=== PATIENT | female | born 1945 | race Caucasian/White ===

== ENCOUNTER 2021-12-08 13:49 | Emergency (ER) | payer MEDICARE, SELFPAY ==
--- NOTE | ~2021-12-08 | XR_ITS ---
EXAMINATION: XR chest 2V DATE: 12/08/2021 16:26 INDICATION: Cough. TECHNIQUE: Frontal and lateral views of the chest were obtained. COMPARISON: Chest 2 views 10/30/2018, CT abdomen and pelvis 07/14/2018 FINDINGS: There is scarring at the lung apices. No pleural effusion or pneumothorax. The heart size i s normal. IMPRESSION: 1. Stable scarring at the lung apices. Reviewed, dictated and finalized at location A.
[2021-12-08 13:58] VITALS: BP 120/77; PULSE 91; RESP 16; TEMP 37; O2SAT 99
--- NOTE | 2021-12-08 16:45 | ED.URI ---
HPI - URI/Sore Throat General Chief Complaint: Upper Respiratory Infection Stated Complaint: Sore Throat/Cough Time Seen by Provider: 12/08/21 16:45 Source: patient and RN notes reviewed Mode of arrival: ambulatory Limitations: no limitations History of Present Illness HPI Narrative: 76-year-old female presented for complaint of sore throat, sinus pressure, cough and sneezing worsening over the past 3 days. Endorses shortness of breath with exertion. She denies nausea, vomiting, fever or chills. Taking Zyrtec, Mucinex, and ibuprofen for symptoms. She has boosted for COVID and has had flu vaccine. Denies sick contacts. MD elicited complaint: cough Related Data Home Medications Medication Instructions Recorded Confirmed Domperidone 10 mg PO TID 12/08/21 aspirin [Baby Aspirin] 81 mg PO DAILY 12/08/21 12/08/21 carbidopa-levodopa 1 tablet PO DAILY 12/08/21 12/08/21 lovastatin 40 mg PO DAILY 12/08/21 12/08/21 Allergies Allergy/AdvReac Type Severity Reaction Status Date / Time buspirone Allergy Intermediate VOMITING Verified 12/08/21 16:13 codeine Allergy Intermediate VOMITING Verified 12/08/21 16:13 metoclopramide Allergy Intermediate VOMITING Verified 12/08/21 16:13 morphine Allergy Intermediate VOMITING Verified 12/08/21 16:13 pentazocine Allergy Intermediate VOMITING Verified 12/08/21 16:13 Review of Systems Review of Systems: CONSTITUTIONAL: Denies malaise, chills, sweats, fever EYES: Denies visual changes, redness, or discharge ENT: Reports rhinorrhea, sneezing, congestion, sinus pain, sore throat CARDIOVASCULAR: Denies chest pain, palpitations, edema RESPIRATORY: Reports cough, post nasal drainage, LOPEZ GASTROINTESTINAL: Denies abdominal pain, nausea, vomiting, diarrhea SKIN: Denies rash or itching MUSCULOSKELETAL: denies myalgia NEUROLOGIC: Denies headache Exam Narrative: GENERAL: Ill-appearing, nontoxic HEAD: Normocephalic EYES: conjunctivae clear ENT: Sinus congestion, Mucous membranes moist. TM pearly cisneros with dull light reflex bilaterally; no tragal tenderness. Oropharynx erythematous without lesions or exudate, no drooling, no hoarseness, no trismus, uvula midline. NECK: Supple. No lymphadenopathy CHEST: Clear to auscultation, breath sounds equal. No wheezing, rhonchi, rales, or stridor. No respiratory distress, speaks in full sentences. HEART: Regular rate and rhythm. No murmur heard. SKIN: Warm, dry, no rash. NEURO: Alert and oriented x3. PSYCH: Normal mood and affect Course Course Emergency Course: Patient is aware of diagnosis, understands and agrees to treatment plan. Anticipatory guidance given. Patient agrees to follow-up as directed and is aware of reasons to seek care at the emergency department. Portions of this record may have been created with voice recognition software Level of Care: Express Care Visit Vital Signs Vital signs: Vital Signs Temperature 98.6 F 12/08/21 13:58 Pulse Rate 91 12/08/21 13:58 Respiratory Rate 16 12/08/21 13:58 Blood Pressure 120/77 12/08/21 13:58 Pulse Oximetry 99 12/08/21 13:58 Temperature 98.6 F 12/08/21 13:58 Pulse Rate 91 12/08/21 13:58 Respiratory Rate 16 12/08/21 13:58 Blood Pressure 120/77 12/08/21 13:58 Pulse Oximetry 99 12/08/21 13:58 reviewed MDM - URI/Sore Throat MDM Narrative Medical decision making narrative: CXR reviewed with pt. Sx c/w URI. She will treat symptomatically and f/u with pcp PRN. Differential Diagnosis Differential diagnosis: Likely upper respiratory infection, sinusitis and viral infection Imaging Data Radiologist's impression: Ordering Physician: Barbara Fairchild APRN Date of Service: 12/08/21 Procedure(s): XR chest 2V Accession Number(s): [id number] cc: Barbara Fairchild APRN; Brett, Loree Walker DO~ EXAMINATION: XR chest 2V DATE: 12/08/2021 16:26 INDICATION: Cough. TECHNIQUE: Frontal and lateral views of the chest were obtained. COMPARISON: Chest 2 views 10/30/2018,
== END 2021-12-08 17:00 | disposition home or self-care (01) ==
PROVIDERS: Emergency Provider Nurse Practitioner Family; PCP Family Medicine
DX: J06.9 Acute upper respiratory infection, unspecified (principal); Z79.82 Long term (current) use of aspirin
CPT/HCPCS: 71046; 99203; G0463

== ENCOUNTER 2022-04-20 18:51 | Emergency (ER) | payer MEDICARE, SELFPAY ==
[2022-04-20 18:59] VITALS: BP 126/71; PULSE 87; RESP 18; TEMP 36.7; O2SAT 98
--- NOTE | 2022-04-20 19:08 | ED.WOUNDLAC ---
HPI - Wound/Laceration General Chief Complaint: Wound/Laceration Stated Complaint: Left hand cat bite Time Seen by Provider: 04/20/22 19:08 Source: patient Mode of arrival: ambulatory Limitations: no limitations History of Present Illness HPI narrative: 76 yo F presents with infection to L hand. Pt's cat bit her 3 days ago. Cat up to date on vaccines. Pt unsure of last tetanus. Has been applying bacitracin and soaking in salt water soaks. afebrile. Normal ROM to L hand. All systems reviewed and negative except as noted above. Related Data Home Medications Medication Instructions Recorded Confirmed Domperidone 10 mg PO TID 12/08/21 04/20/22 aspirin 81 mg chewable tablet 81 mg PO DAILY 12/08/21 04/20/22 carbidopa 25 mg-levodopa 100 mg 1 tablet PO TID 12/08/21 04/20/22 tablet lovastatin 40 mg tablet 40 mg PO DAILY 12/08/21 04/20/22 Allergies Allergy/AdvReac Type Severity Reaction Status Date / Time buspirone Allergy Intermediate VOMITING Verified 04/20/22 19:07 codeine Allergy Intermediate VOMITING Verified 04/20/22 19:07 metoclopramide Allergy Intermediate VOMITING Verified 04/20/22 19:07 morphine Allergy Intermediate VOMITING Verified 04/20/22 19:07 pentazocine Allergy Intermediate VOMITING Verified 04/20/22 19:07 Sulfa (Sulfonamide Allergy Unknown Verified 04/20/22 19:07 Antibiotics) Review of Systems Review of Systems: CONSTITUTIONAL: Denies fever, chills, or sweats. EYES: Denies visual changes, redness, or discharge. ENT: Denies rhinorrhea, congestion, sore throat, or otalgia. CARDIOVASCULAR: Denies chest pain, palpitations, or edema. RESPIRATORY: Denies cough or dyspnea. GASTROINTESTINAL: Denies abdominal pain, nausea, vomiting, or diarrhea. GENITOURINARY: Denies dysuria or hematuria. SKIN: Denies rash or itching. Reports erythema, pain to L hand hand from cat bite. MUSCULOSKELETAL: Denies back pain, joint pain, or myalgia. NEUROLOGIC: Denies headache, numbness, or weakness. PSYCHIATRIC: Denies anxiety or depression. All other systems reviewed are negative, except as documented in HPI. [facility] Comments At time of signature, agree with nursing past medical, surgical, social and family history. There is no relevant family history pertinent to the presenting complaint. Exam Narrative: GENERAL: This is a well-nourished, well-developed patient, in no apparent distress. HEAD: normocephalic, atraumatic. EYES: PERRL. Sclera clear/white. Vision is grossly intact. EARS: External ears normal NOSE: External nose normal NECK: Neck supple, non-tender without lymphadenopathy, masses or thyromegaly. CARDIOVASCULAR: Regular rate and rhythm without murmurs, gallops, or rubs. RESPIRATORY: Clear to auscultation. Breath sounds equal bilaterally. No wheezes, rales, or rhonchi. SKIN: warm, Dry, intact with no suspicious lesions or rash, good texture and turgor. erythema, warmth, mild swelling, tenderness to lateral aspect L hand, 4th and 5th metacarpal. no involvement of fingers. NEURO: awake, alert, and oriented to person, place and time. There were no obvious focal neurologic abnormalities. EXTREMITIES: No joint tenderness, effusion, or edema noted. Course Course Level of Care: Express Care Visit Vital Signs Vital signs: Vital Signs Temperature 36.7 C 04/20/22 18:59 Pulse Rate 87 04/20/22 18:59 Respiratory Rate 18 04/20/22 18:59 Blood Pressure 126/71 04/20/22 18:59 Pulse Oximetry 98 04/20/22 18:59 Oxygen Delivery Room Air 04/20/22 18:59 Temperature 36.7 C 04/20/22 18:59 Pulse Rate 87 04/20/22 18:59 Respiratory Rate 18 04/20/22 18:59 Blood Pressure 126/71 04/20/22 18:59 Pulse Oximetry 98 04/20/22 18:59 Oxygen Delivery Room Air 04/20/22 18:59 Reviewed MDM - Wound/Laceration MDM Narrative Medical decision making narrative: Patient is aware of diagnosis, understands and agrees to treatment plan. Anticipatory guidance given. Patient agrees to follow-up as direct
[2022-04-20] MEDS: TETANUS/DIPHTHERIA TOXOIDS ADSORB 0.5 ML VIAL (*BKC) IM (19:23)
== END 2022-04-20 19:34 | disposition home or self-care (01) ==
PROVIDERS: Emergency Provider Nurse Practitioner Family; PCP Family Medicine
DX: S61.452A Open bite of left hand, initial encounter (principal); L08.9 Local infection of the skin and subcutaneous tissue, unspecified; W55.01XA Bitten by cat, initial encounter; Z23 Encounter for immunization
CPT/HCPCS: 90471; 90714; 99213; G0463

== ENCOUNTER 2023-07-14 13:02 | Emergency (ER) | payer MEDICARE, SELFPAY ==
[2023-07-14 13:10] VITALS: BP 129/82; PULSE 66; RESP 20; TEMP 36.6; O2SAT 98
--- NOTE | 2023-07-14 13:14 | ED.BACK ---
HPI - Back Pain/Injury General Chief Complaint: Back Pain/Injury Stated Complaint: Back pain Time Seen by Provider: 07/14/23 13:14 Source: patient, RN notes reviewed and old records reviewed Mode of arrival: ambulatory Limitations: no limitations History of Present Illness HPI Narrative: 78 year old female presents to [facility] care with complaints of lower back pain with some radiation to buttocks intermittently. patient reports that at times it is on her left side and at times it is on the right. Patient reports that she has been attending Yoga through [employer] in [place] and she states she thinks she may of pulled muscle in her back. Patient reports that she has tried ice and heat, local Biofreeze, Aspercreme and has taken Tylenol for pain also with no improvement. Patient denies any radiation of pain down her legs or any feelings of tingling or numbness, denies any bowel or bladder dysfunction MD elicited complaint: back pain Pertinent past history: other (parkinsons) Onset (ago): week(s) (3) Severity: moderate Pain scale (0-10): 7 Exacerbating factors: movement (certain) Related Data Home Medications Medication Instructions Recorded Confirmed Domperidone 10 mg PO TID 12/08/21 07/14/23 aspirin 81 mg chewable tablet 81 mg PO DAILY 12/08/21 07/14/23 carbidopa 25 mg-levodopa 100 mg 1.5 tablet PO DIRECTED 12/08/21 07/14/23 tablet lovastatin 40 mg tablet 40 mg PO DAILY 12/08/21 07/14/23 carbidopa 25 mg-levodopa 100 mg 1 tablet PO HS 07/14/23 07/14/23 tablet carbidopa 25 mg-levodopa 100 mg 1.5 tablet PO DAILY 07/14/23 07/14/23 tablet Allergies Allergy/AdvReac Type Severity Reaction Status Date / Time buspirone Allergy Intermediate VOMITING Verified 07/14/23 13:20 codeine Allergy Intermediate VOMITING Verified 07/14/23 13:20 metoclopramide Allergy Intermediate VOMITING Verified 07/14/23 13:20 morphine Allergy Intermediate VOMITING Verified 07/14/23 13:20 pentazocine Allergy Intermediate VOMITING Verified 07/14/23 13:20 Sulfa (Sulfonamide Allergy Unknown Verified 07/14/23 13:20 Antibiotics) Review of Systems Review of Systems: CONSTITUTIONAL: Denies fever, chills, or sweats. CARDIOVASCULAR: Denies chest pain, palpitations, or edema. RESPIRATORY: Denies cough or dyspnea. GASTROINTESTINAL: Denies abdominal pain, nausea, vomiting, or diarrhea. GENITOURINARY: Denies dysuria or hematuria. SKIN: Denies rash or itching. MUSCULOSKELETAL: Reports lower back pain with pain,going into buttocks with no radiation down legs, or myalgia. NEUROLOGIC: Denies headache, numbness, or weakness. All systems reviewed & are unremarkable except as noted in HPI and below PMFSH Past Medical History Medical History Arthritis Bronchitis Hyperlipemia, mixed Parkinsonism Pneumonia Surgical History Surgical History H/O: hysterectomy History of tonsillectomy Hx of arthroscopic knee surgery bilateral knees Social History Social History Smoking packs per day: 1 Smoking cigarettes per day: 20.0 Years smoked: 40 Smoking pack-years: 40.00 Smoking status: Former smoker Tobacco type: cigarettes Alcohol intake: current Alcohol use details: rare social Substance use type: does not use Living arrangements: with family Occupation/Education: retired Gender identity (if verbalized by the patient): Female Comments At time of signature, agree with nursing past medical, surgical, social and family history. There is no relevant family history pertinent to the presenting complaint Exam Narrative: GENERAL: Well-appearing, well-nourished, and in no acute distress. HEAD: Normocephalic, atraumatic. EYES: PERRLA and EOMI. NECK: Supple. No lymphadenopathy. CHEST: Clear to auscultation. No respiratory distress. no cough noted SAO2 98% on
== END 2023-07-14 13:49 | disposition home or self-care (01) ==
PROVIDERS: Emergency Provider Registered Nurse; PCP Family Medicine
DX: S39.012A Strain of muscle, fascia and tendon of lower back, initial encounter (principal); M54.30 Sciatica, unspecified side; E78.2 Mixed hyperlipidemia; G20.C Parkinsonism, unspecified; Z79.82 Long term (current) use of aspirin; Z79.899 Other long term (current) drug therapy; Z87.891 Personal history of nicotine dependence; X58.XXXA Exposure to other specified factors, initial encounter; Y93.42 Activity, yoga
CPT/HCPCS: 99213; G0463

== ENCOUNTER 2024-04-19 16:54 | Emergency (ER) | payer MEDICARE, SELFPAY ==
[2024-04-19 17:02] VITALS: BP 136/65; PULSE 109; RESP 20; TEMP 37.3; O2SAT 97
--- NOTE | 2024-04-19 17:12 | ED.URI ---
HPI - URI/Sore Throat General Chief Complaint: Upper Respiratory Infection Stated Complaint: Fatigue/fever/throat/cough Time Seen by Provider: 04/19/24 17:00 Patient presents for evaluation of cough nasal congestion fever and body aches. No shortness of breath no chest pain. Patient states she has taken Robitussin DM and Tylenol for her symptoms. Patient states her symptoms started 4 days ago and she did do a home COVID test on day 1 which was negative. Related Data Home Medications Medication Instructions Recorded Confirmed Domperidone 04/19/24 alendronate 70 mg tablet See Rx Instructions .Route .COMPLEX 04/19/24 04/19/24 aspirin 81 mg tablet,delayed 81 mg PO DAILY 04/19/24 04/19/24 release carbidopa 25 mg-levodopa 100 mg See Rx Instructions .Route .COMPLEX 04/19/24 04/19/24 tablet lovastatin 40 mg tablet 40 mg PO DAILY 04/19/24 04/19/24 mirtazapine 15 mg tablet See Rx Instructions .Route .COMPLEX 04/19/24 04/19/24 omeprazole 20 mg capsule,delayed 20 mg PO DAILY 04/19/24 04/19/24 release Allergies Allergy/AdvReac Type Severity Reaction Status Date / Time buspirone Allergy Intermediate VOMITING Verified 04/19/24 17:00 codeine Allergy Intermediate VOMITING Verified 04/19/24 17:00 metoclopramide Allergy Intermediate VOMITING Verified 04/19/24 17:00 morphine Allergy Intermediate VOMITING Verified 04/19/24 17:00 pentazocine Allergy Intermediate VOMITING Verified 04/19/24 17:00 Sulfa (Sulfonamide Allergy Unknown Verified 04/19/24 17:00 Antibiotics) Review of Systems Review of Systems: CONSTITUTIONAL: Denies chills, or sweats. Reports fever and generalized body aches EYES: Denies visual changes, redness, or discharge. ENT: Denies otalgia. Reports nasal congestion runny nose and sore throat CARDIOVASCULAR: Denies chest pain, palpitations, or edema. RESPIRATORY: Denies dyspnea. Reports occasional cough GASTROINTESTINAL: Denies abdominal pain, nausea, vomiting, or diarrhea. GENITOURINARY: Denies dysuria or hematuria. SKIN: Denies rash or itching. MUSCULOSKELETAL: Denies back pain, joint pain, or myalgia. Reports generalized body aches NEUROLOGIC: Denies headache, numbness, or weakness. PSYCHIATRIC: Denies anxiety or depression. [facility] Past Medical History Medical History Arthritis Bronchitis Hyperlipemia, mixed Parkinsonism Pneumonia Surgical History Surgical History H/O: hysterectomy History of tonsillectomy Hx of arthroscopic knee surgery bilateral knees Social History Social History Smoking packs per day: 1 Smoking cigarettes per day: 20.0 Years smoked: 40 Smoking pack-years: 40.00 Smoking status: Former smoker Tobacco type: cigarettes Alcohol intake: current Alcohol use details: rare social Substance use type: does not use Living arrangements: with family Occupation/Education: retired Gender identity (if verbalized by the patient): Female Comments At time of signature, agree with nursing past medical, surgical, social and family history. There is no relevant family history pertinent to the presenting complaint Exam Narrative: The patient is a well-developed, well-nourished in no acute distress. SKIN: Skin is warm and dry without erythema, swelling or exudate. There is good turgor. No tenting. HEAD: Atraumatic. Normocephalic. No temporal or scalp tenderness. EYES: Moist and bright. Sclera and conjunctivae normal. No discharge. PERRLA. Extraocular motions intact. Gross visual acuity intact. EARS: Pinna is normal shape and contour. Clear external auditory canals. TM pearly donaldson with good cone of light, no erythema or suppuration. Bilateral cerumen noted no gross hearing deficit. NOSE: pink, moist mucosa with good air movement. Clear rhinorrhea without nasal flaring. Septum midline. Mouth: mois
== END 2024-04-19 17:35 | disposition home or self-care (01) ==
PROVIDERS: Emergency Provider Nurse Practitioner Family
DX: J06.9 Acute upper respiratory infection, unspecified (principal); Z20.822 Contact with and (suspected) exposure to COVID-19; Z87.891 Personal history of nicotine dependence; M19.90 Unspecified osteoarthritis, unspecified site; E78.2 Mixed hyperlipidemia; G20.A1 Parkinson's disease without dyskinesia, without mention of fluctuations
CPT/HCPCS: 87426; 99213; G0463

== ENCOUNTER 2024-05-21 14:02 | Emergency (ER) | payer MEDICARE, SELFPAY ==
[2024-05-21 14:19] VITALS: BP 118/77; PULSE 65; RESP 16; TEMP 36.6; O2SAT 99
[2024-05-21 14:36] LABS: EDUAAPPEAR Cloudy; EDUABILI Negative; EDUABLOOD 1+; EDUACOLOR1 Yellow; EDUAGLUCOSE Negative; EDUAKETONE Negative; EDUALEUKO 2+; EDUANITRATE Positive; EDUAPROTEIN Negative; EDUAUROBILI 0.2
--- NOTE | 2024-05-21 14:46 | ED.FEMALEGU ---
HPI - Female Genitourinary General Chief complaint: Urogenital-Female Stated complaint: Poss UTI Time Seen by Provider: 05/21/24 14:46 Source: patient, RN notes reviewed and old records reviewed Mode of arrival: ambulatory Limitations: no limitations History of Present Illness HPI Narrative: 78-year-old female presents to the [facility] with concerns for a UTI. Patient reports frequency, abnormal smell and burning with urination states has gotten worse over the last week. States that she just had her pessary placed. Denies any nausea vomiting. Denies fevers, no CVA tenderness, denies abdominal pain Related Data Home Medications Medication Instructions Recorded Confirmed alendronate 70 mg tablet See Rx Instructions .Route .COMPLEX 04/19/24 04/19/24 aspirin 81 mg tablet,delayed 81 mg PO DAILY 04/19/24 04/19/24 release carbidopa 25 mg-levodopa 100 mg See Rx Instructions .Route .COMPLEX 04/19/24 04/19/24 tablet lovastatin 40 mg tablet 40 mg PO DAILY 04/19/24 04/19/24 mirtazapine 15 mg tablet See Rx Instructions .Route .COMPLEX 04/19/24 04/19/24 omeprazole 20 mg capsule,delayed 20 mg PO DAILY 04/19/24 04/19/24 release Allergies Allergy/AdvReac Type Severity Reaction Status Date / Time buspirone Allergy Intermediate VOMITING Verified 04/19/24 17:00 codeine Allergy Intermediate VOMITING Verified 04/19/24 17:00 metoclopramide Allergy Intermediate VOMITING Verified 04/19/24 17:00 morphine Allergy Intermediate VOMITING Verified 04/19/24 17:00 pentazocine Allergy Intermediate VOMITING Verified 04/19/24 17:00 Sulfa (Sulfonamide Allergy Unknown Verified 04/19/24 17:00 Antibiotics) Review of Systems Review of Systems: All systems reviewed & are unremarkable except as noted in HPI and below Constitutional: Constitutional: Reports no additional constitutional complaints Eyes: Eyes: Reports no additional eye complaints ENT: Reports system reviewed and no additional complaints, except as documented Cardiovascular: Cardiovascular: Reports no additional cardiovascular complaints, Denies chest pain and Denies dyspnea Respiratory: Respiratory: Reports no additional respiratory complaints, Denies chest congestion, Denies cough and Denies dyspnea Gastrointestinal: Gastrointestinal: Reports no additional gastrointestinal complaints, Denies abdominal pain, Denies nausea and Denies vomiting Genitourinary: Genitourinary: Reports as per HPI Musculoskeletal: Musculoskeletal: Reports no additional musculoskeletal complaints Integumentary/Breasts: Skin/Breast: Reports system reviewed and no additional complaints, except as docu Neurologic: Reports system reviewed and no additional complaints, except as documented Psychiatric: Psychiatric: Reports no additional psychiatric complaints Allergic/Immunologic: Allergic/Immunologic: Reports no additional allergic/immunologic complaints PMFSH Past Medical History Medical History Arthritis Bronchitis Hyperlipemia, mixed Parkinsonism Pneumonia Surgical History Surgical History H/O: hysterectomy History of tonsillectomy Hx of arthroscopic knee surgery bilateral knees Social History Social History Smoking packs per day: 1 Smoking cigarettes per day: 20.0 Years smoked: 40 Smoking pack-years: 40.00 Smoking status: Former smoker Tobacco type: cigarettes Alcohol intake: current Alcohol use details: rare social Substance use type: does not use Living arrangements: with family Occupation/Education: retired Gender identity (if verbalized by the patient): Female Comments At the time of my signature, I reviewed and agree with the nursing past medical, surgical, social, and family history. There is no relevant family history pertinent to the patient complaint. Exam Const: General: nimesh
== END 2024-05-21 15:06 | disposition home or self-care (01) ==
PROVIDERS: Emergency Provider Nurse Practitioner
DX: N30.01 Acute cystitis with hematuria (principal); B96.20 Unspecified Escherichia coli [E. coli] as the cause of diseases classified elsewhere; F17.210 Nicotine dependence, cigarettes, uncomplicated; M19.90 Unspecified osteoarthritis, unspecified site; E78.2 Mixed hyperlipidemia; G20.C Parkinsonism, unspecified; Z79.82 Long term (current) use of aspirin
CPT/HCPCS: 81003; 87077; 87086; 87088; 87186; 99213; G0463

== ENCOUNTER 2024-10-12 12:34 | Emergency (ER) | payer MEDICARE, SELFPAY ==
--- NOTE | 2024-10-12 12:37 | ED.FEMALEGU ---
HPI - Female Genitourinary General Chief complaint: Urogenital-Female Stated complaint: poss UTI Time Seen by Provider: 10/12/24 13:00 Source: patient and RN notes reviewed Mode of arrival: ambulatory Limitations: no limitations History of Present Illness HPI Narrative: 79-year-old female presents with concern for urinary tract infection. She reports history of chronic urinary tract infections, her last 1 was 3 weeks ago. She reports her urine was foul smelling 3 weeks ago and got better with antibiotics. She reports a few days ago her urine start swelling very fell again and she has occasional burning. She has in appointment to see a specialist in November. MD elicited complaint: UTI Related Data Home Medications ?Medication ?Instructions ?Recorded ?Confirmed ?Last Taken ?Type alendronate 70 mg tablet See Rx Instructions .Route .COMPLEX 04/19/24 04/19/24 Unknown History aspirin 81 mg tablet,delayed 81 mg PO DAILY 04/19/24 04/19/24 Unknown History release carbidopa 25 mg-levodopa 100 mg See Rx Instructions .Route .COMPLEX 04/19/24 04/19/24 Unknown History tablet lovastatin 40 mg tablet 40 mg PO DAILY 04/19/24 04/19/24 Unknown History mirtazapine 15 mg tablet See Rx Instructions .Route .COMPLEX 04/19/24 04/19/24 Unknown History omeprazole 20 mg capsule,delayed 20 mg PO DAILY 04/19/24 04/19/24 Unknown History release Allergies Allergy/AdvReac Type Severity Reaction Status Date / Time buspirone Allergy Intermediate VOMITING Verified 04/19/24 17:00 codeine Allergy Intermediate VOMITING Verified 04/19/24 17:00 metoclopramide Allergy Intermediate VOMITING Verified 04/19/24 17:00 morphine Allergy Intermediate VOMITING Verified 04/19/24 17:00 pentazocine Allergy Intermediate VOMITING Verified 04/19/24 17:00 Sulfa (Sulfonamide Allergy Unknown Verified 04/19/24 17:00 Antibiotics) Review of Systems Review of Systems: CONSTITUTIONAL: Denies malaise, chills, sweats, or fever. CARDIOVASCULAR: Denies chest pain, palpitations, or edema. RESPIRATORY: Denies cough or dyspnea. GASTROINTESTINAL: Denies abdominal pain, nausea, vomiting, diarrhea GENITOURINARY: Reports dysuria, foul-smelling urine. Denies flank pain or hematuria. SKIN: Denies rash or itching. MUSCULOSKELETAL: Denies back pain or myalgia. All systems reviewed & are unremarkable except as noted in HPI and below PMFSH Past Medical History Medical History Arthritis Bronchitis Hyperlipemia, mixed Parkinsonism Pneumonia Surgical History Surgical History H/O: hysterectomy History of tonsillectomy Hx of arthroscopic knee surgery bilateral knees Social History Social History Smoking packs per day: 1 Smoking cigarettes per day: 20.0 Years smoked: 40 Smoking pack-years: 40.00 Smoking status: Former smoker Tobacco type: cigarettes Alcohol intake: current Alcohol use details: rare social Substance use type: does not use Living arrangements: with family Occupation/Education: retired Gender identity (if verbalized by the patient): Female Comments At time of signature, agree with nursing past medical, surgical, social and family history. There is no relevant family history pertinent to the presenting complaint Exam Narrative: GENERAL: Well-appearing, well-nourished, and in no acute distress. HEAD: Normocephalic. EYES: PERRLA, conjunctivae clear. NECK: Supple. No lymphadenopathy CHEST: Clear to auscultation. No respiratory distress. HEART: Regular rate and rhythm. ABDOMEN: Soft, nontender upon palpation, nondistended, normal active bowel sounds, no palpable or pulsatile masses, no guarding. Bilateral CVA tenderness SKIN: Warm, dry, no rash. NEURO: Alert and oriented x3. PSYCH: Normal mood and affect Course Course Emergency Course: Patient is aware of diagnosis, understands and agrees to treatment plan. Anticipatory guidance given. Patient agrees to follow-up as directed and is aware of reasons to seek care at the emergency department. Portions of this record may have been created with voice recognition software Level of Care: Express Care Visit Vital Signs Vital signs: Reviewed. MDM - Female Genitourinary MDM Narrative Medical decision making narrative: Exam findings and UA show no acute concerns or changes; patient is non-toxic appearing and is in no distress. Patient is appropriate for outpatient treatment and follow-up. Differential Diagnosis Differential diagnosis: Likely urinary tract infection and cystitis Critical Care Time Critical Care Time Critical Care Time: No Discharge Plan Discharge Clinical Impression: Urinary tract infection Patient Disposition: Home, Self-Care Condition: Stable Instructions: Antibiotic Form, Urinary Tract Infection in Older Adults (ED) Additional Instructions: We will send a urine culture to the lab; if the culture identifies an organism that the prescribed antibiotic will not treat, you will receive a phone call from an urgent care staff member and an appropriate antibiotic will be prescribed. -Your symptoms should begin to improve within a day of starting antibiotics. But you should finish all the antibiotic pills you get. Otherwise your infection might come back. -Also recommend: increase water intake. Tylenol/ibuprofen as needed for pain or fever -Follow-up with your primary care provider for urine recheck or seek ER visit if condition worsens with high fever, nausea, vomiting and severe back pain. Patient Language: Kosovan Prescriptions: New levofloxacin 750 mg tablet 750 mg PO DAILY 7 Days Qty: 7 0RF No Action lovastatin 40 mg tablet 40 mg PO DAILY aspirin 81 mg tablet,delayed release (DR/EC) 81 mg PO DAILY omeprazole 20 mg capsule,delayed release(DR/EC) 20 mg PO DAILY alendronate 70 mg tablet See Rx Instructions .ROUTE .COMPLEX Rx Instructions: as prescribed mirtazapine 15 mg tablet See Rx Instructions .ROUTE .COMPLEX Rx Instructions: as prescribed carbidopa-levodopa 25-100 mg tablet See Rx Instructions .ROUTE .COMPLEX Rx Instructions: as prescribed albuterol sulfate 90 mcg/actuation HFA aerosol inhaler 2 puff inhalation QID PRN (Reason: shortness of breath or wheezing) Qty: 8.5 0RF Follow-up/Referrals: Floresita,Isidro Walker MD [Primary Care Provider] - Time of Disposition: 13:07
[2024-10-12 12:47] VITALS: BP 121/68; PULSE 82; RESP 16; TEMP 36.3; O2SAT 98
[2024-10-12 13:05] LABS: EDUAAPPEAR Cloudy; EDUABILI 1+ (Negative); EDUABLOOD Trace (Negative); EDUACOLOR1 Yellow; EDUAGLUCOSE Negative (Negative); EDUAKETONE Trace (Negative); EDUALEUKO 1+ (Negative); EDUANITRATE Positive (Negative); EDUAPROTEIN 1+ (Negative); EDUASPGRAVITY 1.025; EDUAUROBILI 0.2
--- OUTSIDE RECORDS SUMMARY | 2024-10-15 13:11 | XMS_ITS | Clinical Summary ---
Author Organization [facility] Address [address] [place] [address] Care Team Providers Care Dining Service Supervisor Name Role Phone Jarad Rodríguez MD Unavailable [phone] Noe Rodriguez MD Unavailable Susan Dc DO Unavailable [phone] Fawad White MD Unavailable [phone] Isidro Schultz MD Primary Care Provider Allergies Active Allergy Reactions Criticality Noted Date Comments Buspirone Other (See comments) Medium 08/23/2014 Reaction: Hives, Codeine Other (See comments),Vomiting Low 08/23/2014 Reaction: Hives, Metoclopramide Other (See comments) Reaction: Other reaction, Morphine Other (See comments),Vomiting Low 08/23/2014 Reaction: Hives, Oxycodone-Acetaminophen Vomiting Low 02/08/2020 Pentazocine Other (See comments),Vomiting Low Reaction: projectile vomiting, , Reaction: mixed opiod, , Reaction: Hives, Prochlorperazine Prochlorperazine Edisylate Unknown,Vomiting Low 08/23/2014 Sulfa (Sulfonamide Antibiotics) Nausea & Vomiting Low 07/10/2017 Tramadol Flushing (skin) Low 03/29/2020 Medications coenzyme Q10 100 mg capsule Take 2 capsules (200 mg total) by mouth daily Active NOT IN DATABASE, PRESCRIPTION,In dications:Parki nson's disease (HCC) Drug name: Domperidone Dose: Take 1.5 (15mg) tabs at morning and afternoon, and 2 (20mg) tabs at evening. 150 each 11 08/28/20 23 Active carbidopa-levod opa (SINEMET) 25-100 mg per tablet TAKE 1.5 TABLETS BY MOUTH AT 6AM,12PM, AND 2 TABLETS AT 8PM 450 tablet 3 10/31/19 24 Active calcium carbonate-vitam in D3 (CALTRATE 600 + D) 1500 mg (600 mg elemental) -400 units per tablet Take 1 tablet by mouth daily Active loratadine (CLARITIN) 10 mg tablet Take 1 tablet (10 mg total) by mouth daily 04/19/20 24 Active aspirin 81 mg enteric coated tablet Take 1 tablet (81 mg total) by mouth daily 30 tablet 11 06/02/20 24 025 Active alendronate (FOSAMAX) 70 mg tabletIndicatio ns:Age-related osteoporosis without current pathological fracture TAKE 1 TABLET BY MOUTH EVERY 7 DAYS TAKE IN THE MORNING WITH A FULL GLASS OF WATER, ON AN EMPTY STOMACH, AND DO NOT TAKE ANYTHING ELSE BY MOUTH OR LIE DOWN FOR THE NEXT 30 MIN. 12 tablet 4 06/17/20 24 Active ondansetron (ZOFRAN) 4 mg tablet Take 1 tablet (4 mg total) by mouth 4 (four) times a day as needed for nausea or vomiting 120 tablet 11 08/12/20 24 Active omeprazole (PriLOSEC) 40 mg capsuleIndicati ons:Gastroesoph ageal reflux disease without esophagitis Take 1 capsule (40 mg total) by mouth daily 90 capsule 3 09/02/20 24 025 Active amoxicillin-cla vulanate (AUGMENTIN) 875-125 mg per tablet Take 1 tablet by mouth every 12 (twelve) hours 14 tablet 09/07/20 24 Active lovastatin (MEVACOR) 40 mg tabletIndicatio ns:Hypercholest erolemia TAKE 1 TABLET BY MOUTH EVERY DAY 90 tablet 1 09/21/20 24 Active lovastatin (MEVACOR) 40 mg tabletIndicatio ns:Hypercholest erolemia Take 1 tablet (40 mg total) by mouth daily 90 tablet 1 03/03/20 24 Discontinued Active Problems Problem Noted Date Diagnosed Date Recurrent cystitis 05/27/2024 Assessment & Plan (09/02/2024 3:10 PM HEAD OF QUALITY): -chronic, not at goal - recurring issue over the last 4-5 months -patient does endorse history of prolapsed bladder and uses pessary -previously followed with Urology, but has not seen them in awhile -antibiotics switched to ciprofloxacin b.i.d. times 10 days -established with Urology -recommend increased water intake -continue current treatment plan per Urology Assessment & Plan (05/27/2024 6:56 PM CDT): -chronic, not at goal -patient reports having ongoing urinary issues for over 1 month -patient has been seen at [facility] and by PCP for this issue -patient reports she is currently taking Augmentin for a UTI due to E coli, but states she is feeling no relief with the antibiotics -patient does endorse history of prolapsed bladder and uses pessary -previously followed with Urology, but has not seen them in awhile -antibiotics switched to ciprofloxacin b.i.d. times 10 days -new referral to Urology placed -instructed patient to increase water intake and repeat urinary testing on 06/08- -continue current treatment plan Varicose veins of both lower extremities Assessment & Plan (03/04/2024 10:04 PM CDT): -new complaint, chronic -patient reports history varicose veins for some time now -patient reports she has noticed a more enlarged varicose vein on her right proximal calf, she states this areas occasionally tender -educated patient on supportive care measures and signs and symptoms to monitor for -patient prefers to defer further intervention at this time Chronic constipation 09/10/2022 Assessment & Plan (09/10/2022 11:14 AM HEAD OF QUALITY): Encouraged patient to make sure she keeps her bowels moving on a daily basis to help minimize his symptoms of acid reflux or heartburn. She reports MOM helps. May continue. Consider MiraLax daily. Increase water intake. Gastroesophageal reflux disease without esophagi tis 09/10/2022 Assessment & Plan (09/02/2024 3:11 PM HEAD OF QUALITY): - chronic, not at goal - patient currently takes omeprazole 20 mg daily --> increase to Omeprazole 40 mg daily, script sent in given she has chronic Nausea and intermittent vomiting - patient encouraged to continue avoiding trigger foods and remaining upright at least 30 minutes after eating or drinking Assessment & Plan (03/04/2024 10:02 PM CDT): -chronic, stable -patient currently takes omeprazole 20 mg daily -patient encouraged to continue avoiding trigger foods and remaining upright at least 30 minutes after eating or drinking -continue current therapy Assessment & Plan (09/07/2023 12:47 PM HEAD OF QUALITY): Asymptomatic. Stable. Continue current prescription medications, omeprazole. Assessment & Plan (09/10/2022 11:13 AM HEAD OF QUALITY): Labs ordered, will follow. Acne rosacea 01/24/2022 Assessment & Plan (01/24/2022 12:31 PM CDT): Suspect rosacea, referred to dermatology for further evaluation and management. 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 Substance or medication-michelle ann sleep disorder, daytime sleepiness type 07/18/2020 Assessment & Plan (09/08/2021 11:49 AM HEAD OF QUALITY): Follows with Neuro. Aortic atherosclerosis 01/14/2020 Assessment & Plan (09/10/2022 11:14 AM HEAD OF QUALITY): Asymptomatic. Stable. Continue current prescription medications. Assessment & Plan (09/08/2021 11:49 AM HEAD OF QUALITY): Asymptomatic, continuing aspirin and statin. Assessment & Plan (01/05/2021 1:15 PM CDT): Asymptomatic. Continue daily aspirin and statin. Seborrheic keratosis 04/30/2019 Assessment & Plan (04/30/2019 11:31 AM CDT): Back, multiple Diagnosis discussed, benign reassurance was given. No treatment is indicated at this time. Patient was instructed to return if symptoms develop. Wrist pain, chronic, right 04/08/2019 Assessment & Plan (04/08/2019 7:39 PM CDT): Clinically improved, continue current meds. OTC Aleve prn pain, use as directed. May add tylenol prn . Cont compression until pain improves. ROM exercises encouraged. Handout given. Primary osteoarthritis of right wrist 04/08/2019 Class 1 obesity due to exces s calories with serious comorbidity and body mass index (BMI) of 30.0 to 30.9 in adult 04/08/2019 Assessment & Plan (09/02/2024 2:26 PM HEAD OF QUALITY): Wt Readings from Last 3 Encounters: 09/02/24 79.5 kg (175 lb 4.8 oz) 08/12/24 80.1 kg (176 lb 9.6 oz) 05/27/24 78.2 kg (172 lb 8 oz) Body mass index is 30.56 kg/m??. -Stable, at goal of <30 bmi -Discussed recommendations for exercise at least 30 minutes moderate to vigorous exercise as tolerated most days of the week. (minimum 150 minutes weekly) -Discussed importance of well-balanced diet. Assessment & Plan (05/27/2024 6:50 PM CDT): Wt Readings from Last 3 Encounters: 05/27/24 78.2 kg (172 lb 8 oz) 04/22/24 78 kg (172 lb) 03/03/24 79.4 kg (175 lb) Body mass index is 28.4 kg/m??. -Stable, at goal of <30 bmi -Discussed recommendations for exercise at least 30 minutes moderate to vigorous exercise as tolerated most days of the week. (minimum 150 minutes weekly) -Discussed importance of well-balanced diet. Assessment & Plan (03/03/2024 10:48 AM CDT): Wt Readings from Last 3 Encounters: 03/03/24 79.4 kg (175 lb) 08/30/23 79.4 kg (175 lb) 03/11/23 78.2 kg (172 lb 4.8 oz) Body mass index is 28.81 kg/m??. -Stable, at goal of <30 bmi -Discussed recommendations for exercise at least 30 minutes moderate to vigorous exercise as tolerated most days of the week. (minimum 150 minutes weekly) -Discussed importance of well-balanced diet. Assessment & Plan (10/30/2022 2:45 PM HEAD OF QUALITY): HPI: Condition is stable goal BMI <30 A&P: Healthy, high-protein, lower carbohydrate, lower fat lifestyle and exercise for 150min/week recommended Assessment & Plan (03/29/2020 2:54 PM CDT): Healthy, low carbohydrate lifestyle and exercise for 150min/week recommended] Assessment & Plan (02/03/2020 2:42 PM CDT): Healthy, low carbohydrate lifestyle and exercise for 150min/week recommended She is doing 1500 charles diet Spondylolisthesis of lumbar region 04/08/2019 Sialorrhea 08/18/2018 Bilateral carotid artery stenosis 10/03/2015 Frequent UTI 03/14/2015 Overview (09/21/2024): Following with Urology Assessment & Plan (09/21/2024 1:14 AM HEAD OF QUALITY): - hx of cystocele - currently on macrobid for UTI from urology - reports has had cystoscopy with normal findings, has uterine prolapse - freqent UTIs off an on sicne end of March Parkinson's disease 02/06/2014 Overview (09/02/2024): Following with Neurology Assessment & Plan (08/12/2024 3:44 PM HEAD OF QUALITY): 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 Overall, symptoms have progrssed slowly and she is doing well. She had some setbacks reecntly with respect to increased fatigue in the context of persistent UTIs and microscopic hematuria of unclear etiology (f/u with urology scheduled). She had levodopa induced nausea (treated with domperidone) and fatigue that may be dose limiting, but otherwise excellent motor benefit. She is currently reluctant to afford domperidone and we discussed a trial with the alternative, ondansetron. Carbidopa supplements would also likely be cost prohibitive, but something to look into of ondandsetron is not benefcial. She has a history of orthostasis that is controlled with increased salt and fluids, but she admits non-comploiance to the former. She remained active and will continue daily exercise- but is cautious in context of recent illness and LOC with ortostasis in context of presumed urosepsis. WE discussed PT to assist with fear of falling, but she is unwilling curently. She has some levodopa induced fatigue and may continue AM caffeine suppplementation for this. She is bothered by insomnia and felt melatonin did not not work, trazodone caused morning hangover and quetiapine worsened lightheadedness. Levodopa at bedtime helped, so she will continue the last dose of LD at bedtime rather than earlier. We could consider low dose mirtazapine. She has some mild dysphagia but has had swallow test and ST; this has not worsened since. She has lifelong constipation that is generally controlled with fiber and prunes but may add Miralax as needed. 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 Prior testing for reversible etiologies has been unrevealing. Recommendations Same CD, LD, 2. Consider PT (not ready currently- gait, balance and endurance training), 3. Urology close f/u with recent history of presumed urosepsis and persistent microscopic hematuria, 5. Trial with ondansetron (more affordable), d/c domperidone, 5. Encouraged copious salt/water intake, 6. Encouraged daily exercise. 7 Bowel regimen as dicussed. 8. 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 Dopa-induced nausea is controlled by 15 mg tid domperidone and taking levodopa with meals. A recent increase did not seem to improve any symptoms and she still has a bit of unsteadiness. Luckily neither the nausea nor the dopa induced sleepiness worsened with the bigger dose. Her orthostasis thus far is controlled with increased salt, caffeine and fluids. She is doing some exercise and should add more stretching. I again gave info on the youtube channel exercises from [employer]. She has some levodopa induced sleepiness but is drinking caffeine already. She is bothered by insomnia and felt melatonin did not not work, trazodone caused morning hangover and quetiapine worsened lightheadedness. Today, she is willing to try low dose mirtazapine and she also has some periods of feeling depressed at times so mirtazapine may also be helpful for that issue. She has some mild dysphagia but has had swallow test and ST. She has lifelong constipation that is generally controlled with fiber and prunes. She has not found Miralax to be helpful in the past. She does have OAB and a pessary and this has been worse lately. I suggested she se her urologist and sent a list of cognitively safe drugs in OAB. Recommendations 1. Same levodopa. 2. Same domperidone. 3. Start 7.5 to 15 mg of mirtazapine for sleep and occasional low mood. 4. Continue home exercise and [employer] youtube exercises, refused PT today. 5. May continue prunes, fiber and Miralax for constipation. 6. Continue to increase salt and fluids. 7. Continue increased caffeine for daytime sleepiness. 8. Sent list of safe drugs for OAB to her email. 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 She had levodopa induced nausea (treated with domperidone) and fatigue that may be dose limiting, but otherwise excellent motor benefit. She had postural instability on exam today that warrants an attempt to titrate CD/LD. Dopa-induced nausea is controlled by domperidone. She has a history of orthostasis that is controlled with increased salt and fluids- I wonder i9f there may be a post-prandial aspect too. She remained active and will continue daily exercise. She has some levodopa induced fatigue and may continue AM caffeine suppplementation for this. She is bothered by insomnia and felt melatonin did not not work, trazodone caused morning hangover and quetiapine worsened lightheadedness. Levodopa at bedtime helped, so she will continue the last dose of LD at bedtime rather than earlier. We could consider low dose mirtazapine but she would like to hold off. She has some mild dysphagia but has had swallow test and ST and I informed her of PD [employer] Project online. She has lifelong constipation that is generally controlled with fiber and prunes but may add Miralax as needed. 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 We will test for potentially reversible etiologies today. ?? Recommendations 1. Increase CD/LD to 1.5/1.5/2, 2. Same domperidone. 3. Could consider 7.5 mg of mirtazapine for sleep. 4. May continue high fiber diet and MOM constipation. 5. Continue liberal salting of food and liberal PO clear fluid intake, 6. Continue increased caffeine for daytime sleepiness- stop ~2PM to avoid disrupting sleep, 7. B12, TSH today. 8. She is interested in PIB/PAnd, but is cluasterphobic. Our research coordinators to discuss possibility of other aspects, etc. 9. Genetics testing today. 10. Our office to send a hand-written Rx for domperidone for her to submit to the pharmacy (could not do in Epic at visit). Assessment & Plan (09/10/2022 11:14 AM HEAD OF QUALITY): Stable. Cont. Current prescription medications. Managed by Neurology. Assessment & Plan (05/09/2022 12:46 PM CDT): She has stage 2 idiopathic PD (at last in-person visit) with good response to levodopa with only mild and occasional dyskinesia. Dopa-induced nausea is controlled by domperidone, which she now takes PRN but she also must take levodopa with meals (vs just snacks). Her orthostasis thus far is controlled with increased salt and fluids. She is doing some exercise and should add more stretching. I again gave info on the youtube channel exercises from [employer]. She has some levodopa induced sleepiness but is drinking caffeine already. She is bothered by insomnia and felt melatonin did not not work, trazodone caused morning hangover and quetiapine worsened lightheadedness. We could consider low dose mirtazapine but she would like to hold off. She has some mild dysphagia but has had swallow test and ST and I informed her of PD Voice Project online. She has lifelong constipation that is generally controlled with fiber and prunes but may add Miralax as needed. Recommendations 1. Same levodopa. 2. Same domperidone. 3. Could consider 7.5 mg of mirtazapine for sleep. 4. Continue home exercise and [employer] youtube exercises, refused PT today. 5. May continue prunes and Miralax for constipation. 6. Continue to increase salt and fluids. 7. Continue increased caffeine for daytime sleepiness. 8. Start PD Voice Project. Assessment & Plan (05/08/2022 10:38 AM CDT): She has stage 2 idiopathic PD (at last in-person visit) with good response to levodopa with only mild and occasional dyskinesias. Dopa-induced nausea is controlled by domperidone, which she now takes PRN but she also must take levodopa with meals (vs just snacks). Her orthostasis thus far is controlled with increased salt and fluids. She is doing some exercise and has added more stretching. She has done some youtube channel exercises from [employer]. She has some levodopa induced sleepiness but is drinking caffeine already. She is bothered by insomnia and felt trazodone caused morning hangover. She also could have some vivid dreams and we will try quetiapine at low dose to see if she tolerates this, though she does not have hallucinations. She has lifelong constipation that is generally controlled with fiber and prunes but may add Miralax as needed. Recommendations 1. Same levodopa. 2. Same domperidone. 3. Start low dose quetiapine for sleep and vivid dreams. 4. Continue home exercise and [employer] youtube exercises, refused PT today. 5. May continue prunes for constipation. 6. Continue to increase salt and fluids. 7. Continue increased caffeine for daytime sleepiness. Assessment & Plan (01/18/2022 2:40 PM CDT): She has stage 2 idiopathic PD (at last in-person visit) with good response to levodopa with only mild and occasional dyskinesias. Dopa-induced nausea is controlled by domperidone, which she now takes PRN but she also must take levodopa with meals (vs just snacks). Her orthostasis thus far is controlled with increased salt and fluids. She is doing some exercise and has added more stretching. She has done some youtube channel exercises from [employer]. She has some levodopa induced sleepiness but is drinking caffeine already. She is bothered by insomnia and felt trazodone caused morning hangover. She also could have some vivid dreams and we will try quetiapine at low dose to see if she tolerates this, though she does not have hallucinations. She has lifelong constipation that is generally controlled with fiber and prunes but may add Miralax as needed. Recommendations 1. Same levodopa. 2. Same domperidone. 3. Start low dose quetiapine for sleep and vivid dreams. 4. Continue home exercise and [employer] youtube exercises, refused PT today. 5. May continue prunes for constipation. 6. Continue to increase salt and fluids. 7. Continue increased caffeine for daytime sleepiness. Assessment & Plan (09/08/2021 11:49 AM HEAD OF QUALITY): Stable, patient follows with Neuro Assessment & Plan (01/16/2021 10:49 AM CDT): She has stage 2 idiopathic PD (at last in-person visit) with good response to levodopa with only mild and occasional dyskinesias. Dopa-induced nausea is controlled by domperidone. Her orthostasis thus far is controlled with increased salt and fluids. She is doing some exercise and has added more stretching. She has done some youtube channel exercises from [employer]. She has some levodopa induced sleepiness but is drinking caffeine already. PRN trazodone has helped with her sleep but she does not want to take it nightly. She has lifelong constipation that is generally controlled with fiber and diet but may add Miralax as needed. Her carbi/levo has moved to a tier 3 drug and is expensive and her insurance is suggesting an alternative medicine. To be clear, there is no alternative medicine for carbi/levo, which is the gold standard drug for PD and she will require this drug for the rest of her life. ?? Recommendations 1. Same levodopa. We will check in with insurance about trying to reduce the cost. 2. Same domperidone. 3. Same trazodone PRN as directed. 4. Continue home exercise and [employer] youtube exercises, refused PT today. 5. May add Miralax for constipation. 6. Continue to increase salt and fluids. 7. Continue increased caffeine for daytime sleepiness. Assessment & Plan (01/05/2021 1:15 PM CDT): At baseline. Managed by Neurology. Assessment & Plan (09/06/2020 9:12 AM HEAD OF QUALITY): Stable, followed by neurology Continue current regimen Assessment & Plan (07/18/2020 5:54 PM CDT): She has stage 2 idiopathic PD with good response to levodopa with only mild and occasional dyskinesias. Dopa-induced nausea is generally controlled by domperidone. Her orthostasis thus far is controlled with increased salt and fluids. She is doing some exercise but needs to incorporate stretching. We will send her a new patient packet with a stretching book and also gave her info on the [employer] youtube channel. She has pretty substantial levodopa induced sleepiness but is drinking caffeine already. She cannot sleep well at night and we will try a small dose of trazodone. ?? Recommendations 1. Same levodopa. 2. Same domperidone but she may try the first dose 30 min before levodopa. 3. Start trazodone PRN as directed. 4. Start [employer] youtube exercises, refused PT today. 5. Will send [employer] new patient packet with stretching book. 6. Continue to increase salt and fluids. Age-related osteoporosis wit hout current pathological fracture 09/09/2012 Assessment & Plan (09/07/2024 1:35 AM HEAD OF QUALITY): - chronic, stable - currently takes Fosamax 70 mg weekly - started late 2022 - DEXA bone scan last completed March 2023 - encourage patient to continue calcium vitamin-D 3 supplement and weight- bearing exercises - continue current therapy Lab Results Component Value Date CALCIUM 10.6 (H) 09/02/2024 Lab Results Component Value Date TSH 3.27 09/02/2024 No results found for: [id number] Assessment & Plan (03/03/2024 2:59 PM CDT): -chronic, stable -currently takes Fosamax 70 mg weekly -DEXA bone scan last completed March 2023 -encourage patient to continue calcium vitamin-D 3 supplement and weight-bearing exercises -continue current therapy Assessment & Plan (09/07/2023 12:47 PM HEAD OF QUALITY): Weight-bearing exercises recommended. Continue Fosamax. Add Calcium w/D supplements, 600 mg bid. Assessment & Plan (03/11/2023 7:26 PM CDT): Weight-bearing exercises recommended. Bone density study ordered. Patient does not remember why she no longer takes any medications for osteoporosis. Will view DEXA scan prior to making recommendations. Hypercholesterolemia 09/09/2012 Assessment & Plan (09/21/2024 1:06 AM HEAD OF QUALITY): - chronic, stable - currently takes lovastatin 40 mg - Discussed importance of well-balanced diet. -continue current therapy Lab Results Component Value Date CHOL 170 09/02/2024 CHOL 179 03/11/2023 CHOL 171 09/10/2022 Lab Results Component Value Date HDL 69 09/02/2024 HDL 68 03/11/2023 HDL 76 09/10/2022 Lab Results Component Value Date LDLCALC 86 09/02/2024 LDLCALC 97 03/11/2023 LDLCALC 82 09/10/2022 LDL 73 11/29/2016 LDL 88 05/11/2016 LDL 104 03/05/2016 Lab Results Component Value Date TRIG 78 09/02/2024 TRIG 70 03/11/2023 TRIG 63 09/10/2022 Assessment & Plan (03/04/2024 9:55 PM CDT): -chronic, stable -currently takes lovastatin 40 mg -Discussed importance of well-balanced diet. -will recheck lab values at next visit -refill of medication provided -continue current therapy Assessment & Plan (09/07/2023 12:47 PM HEAD OF QUALITY): LDL at goal of less than 100, continue current prescription medications, lovastatin. Assessment & Plan (03/11/2023 7:25 PM CDT): LDL at goal of less than 100, continue current prescription medications, lovastatin. Assessment & Plan (09/10/2022 11:14 AM HEAD OF QUALITY): LDL at goal of less than 100, continue current prescription medications. Assessment & Plan (01/24/2022 12:29 PM CDT): LDL at goal of less than 100. Continue current prescription medication. Assessment & Plan (12/25/2021 2:55 PM CDT): LDL at goal of < 100, cont current Rx meds. Assessment & Plan (09/08/2021 11:48 AM HEAD OF QUALITY): Stable, continues Lovastatin Will see PCP for [facility] in 12/2021 for labs. Assessment & Plan (01/05/2021 1:15 PM CDT): Stable. Cont. Current meds. Assessment & Plan (09/06/2020 9:12 AM HEAD OF QUALITY): Stable at last lipid panel Will be due for lipid panel, f/u with pcp in 4 months Assessment & Plan (07/30/2018 12:38 PM HEAD OF QUALITY): Lipid abnormalities are improving with treatment. Nutritional counseling was provided. and Pharmacotherapy as ordered. Lipids will be reassessed in 6 months. Assessment & Plan (01/28/2018 2:51 PM CDT): Lipid abnormalities are unchanged. Nutritional counseling was provided. and Pharmacotherapy as ordered. Lipids will be reassessed in 6 months. Resolved Problems Problem Noted Date Diagnosed Date Resolved Date Epigastric pain 09/10/2022 03/11/2023 Assessment & Plan (09/10/2022 11:13 AM HEAD OF QUALITY): Mild, H pylori test ordered. After test has been performed, patient may try [id number] omeprazole. Use as directed. If it does help out with her symptoms, patient instructed to contact us via [facility] and I will send in a prescription for her. Enteritis 05/14/2022 03/11/2023 Assessment & Plan (05/14/2022 12:56 PM CDT): Resolving. Discussed constipation. Seems to be resolving with her home remedies of prune juice and prunes at bedtime. I told her if she gets constipated again she could add in some milk of magnesia, 15-30 cc with the prune juice and warm it up and drink that at bedtime. Abnormal mammogram of left breast 01/04/2022 09/02/2024 Acute cystitis without hematuria 12/25/2021 09/10/2022 Assessment & Plan (12/25/2021 2:55 PM CDT): Urine dipstick ordered. +Nitrites. UCx ordered. Edema of left ankle 12/25/2021 03/11/20 23 Assessment & Plan (12/25/2021 2:54 PM CDT): Ice packs on left ankle, 20 mins/hr. Elevate. Add compression with YULISA bandage. Sprain of left ankle 12/25/2021 023 Assessment & Plan (12/25/2021 2:54 PM CDT): R.I.C.E. therapy. May take OTC pain reliever of choice. Offered referral for PT, patient declined. Personal history of tobacco use, presenting hazards to health 01/05/2021 12/25/2021 Orthostasis 07/18/2020 01/05/2021 Insomnia due to medical condition 07/18/2020 03/11/2023 Tear of medial meniscus of left knee 04/27/2020 01/05/2021 Overview (04/27/2020): Added automatically from request for surgery [id number] Tear of medial meniscus of right knee 04/27/2020 01/05/2021 Overview (04/27/2020): Added automatically from request for surgery [id number] Acute medial meniscus tear of left knee 03/28/2020 01/05/2021 Overview (03/28/2020): Added automatically from request for surgery [id number] Acute medial meniscus tear of right knee 03/28/2020 01/05/2021 Overview (03/28/2020): Added automatically from request for surgery [id number] Assessment & Plan (03/29/2020 2:56 PM CDT): EKG done in office-unchanged from previous EKG. Patient had echocardiogram and stress test done earlier this spring. She was previously cleared for surgery by cardiology in January, but due to COVID-19, surgery was delayed. Pt will have labs drawn today, but so long as those are normal, she appears to be a good candidate for surgery with low risk due to anesthesia. Other chest pain 01/14/2020 01/05/2021 Dyspnea on exertion 01/14/2020 03/04/20 24 Abnormal ECG 01/12/2020 03/04/2024 Tear of medial meniscus of left knee, current 12/01/19 20 01/05/2021 Assessment & Plan (12/01/2019 9:16 AM CDT): Per Ortho Plantar fasciitis of right foot 07/20/2019 09/02/2024 Hypercalcemia 01/30/2018 01/05/2021 Pain of right hip joint 01/28/201802/21 Assessment & Plan (01/28/2018 2:51 PM CDT): Xrays ordered, patient will continue to take OTC Aleve prn pain. Sciatica of right side 01/28/201809/02 Assessment & Plan (01/28/2018 2:51 PM CDT): Xrays ordered, patient will continue to take OTC Aleve prn pain. Microscopic hematuria 07/10/20172021 Arthritis 02/06/2014 09/02/2024 Chronic obstructive pulmonary disease 02/06/2014 01/05/2021 Overview (12/28/2016): COPD (chronic obstructive pulmonary disease) Assessment & Plan (09/06/2020 9:12 AM HEAD OF QUALITY): Stable, continue current regimen Tear film insufficiency 09/09/201208/25 Overview (12/26/2016): Dry eye syndrome Cataract of left eye 09/09/2012 024 Overview (12/27/2016): Cataract Assessment & Plan (05/27/2024 6:53 PM CDT): -chronic, not at goal -patient reports difficulty with vision due to cataract in left eye -follows with Dr. Caraballo -upcoming plans for cataract removal on 06/11 -physical assessment within normal limits, EKG shows normal sinus rhythm -preop surgical form filled out -patient deemed low risk for complications due to anesthesia -medical clearance granted -continue current treatment plan Encounters Date Type Department Care Team Description 09/07/2024 4:19 PM HEAD OF QUALITY - 09/07/2024 7:17 PM HEAD OF QUALITY Emergency [facility] Emergency Department [address] [place] [address] Colitis (Primary Dx) Discharge Disposition: Discharge to home or self care 09/07/2024 Nurse Triage [facility] Primary Care at [address] [place] [phone] Isidro Schultz MD 09/02/2024 2:50 PM HEAD OF QUALITY Lab [address] Parkinson's disease with dyskinesia and fluctuating manifestations (HCC); Hypercholesterolemia; Fever in adult; Urinary urgency 09/02/2024 2:15 PM HEAD OF QUALITY Office Visit [facility] at [address] [place] [phone] Isidro Schultz MD Medicare annual wellness visit, subsequent (Primary Dx); Recurrent cystitis; Hypercholesterolemia; Gastroesophageal reflux disease without esophagitis; Age-related osteoporosis without current pathological fracture; Class 1 obesity due to excess calories with serious comorbidity and body mass index (BMI) of 30.0 to 30.9 in adult; Parkinson's disease with dyskinesia and fluctuating manifestations (HCC) 08/27/2024 Documentation [facility] [address] [place] [phone] Kimberley Rosales Iván 08/12/2024 1:30 PM HEAD OF QUALITY Office Visit [facility] [address] [place] [phone] Fawad White MD Parkinson's disease with dyskinesia and fluctuating manifestations (HCC) (Primary Dx) from Last 3 Months Immunizations Name Administration Dates Next Due COVID-19 mRNA ([employer]) 0.3 m L (30 mcg) vaccine (12 years and up) 07/20/2024,07/02/2023 Influenza Virus Vaccine Trivalent Mdv 07/20/2024 Influenza, Quadrivalent, Hig h Dose, Preservative Free, Intrr 07/02/2023,06/11/2022,07/04/2021,06/26,06/26/2020 Influenza, Split 06/23/2010 Influenza, Trivalent, High D ose, Split, Preservative Free, Intramuscular 06/23/2019,06/23/2019,06/30/2018,06/30,06/17/2017,06/06/2016,06/21/2015 ,06/21/2015,05/24/2015 Influenza, Trivalent, IM (MDV) 06/22/2014,2012,06/10/2012 Influenza, Unspecified 07/02/2023,2021,06/26/2020,06/23,07/01/2018 Pfizer SARS-CoV-2 Monovalent Vaccination (12+ Yrs) PURPLE 06/12/2022 Pfizer Sars-Cov-2 Bivalent V accination (12+ YRS) 06/11/2022 Pneumococcal Conjugate Pcv20 08/30/2023 Pneumococcal Polysaccharide PPV23 09/01/2010 TD Preservative Free 04/20/2022 Td, adsorbed 09/23/1999 Tdap 09/09/2012 Surgical History Surgery Date Site/Laterality Comments TONSILLECTOMY Tonsillectomy OTHER 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 Shaggy Mccarthy-Movement disorder/neurology OTHER SURGICAL HISTORY Dr. Noe Rodriguez/urogynecologist . OTHER SURGICAL HISTORY 09/23/1990 - 09/22/1991 breast bx rt OTHER SURGICAL HISTORY microscopic hematuria: Dr. Rodriguez OTHER SURGICAL HISTORY 01-gi: Dr. Shelton OTHER SURGICAL HISTORY Dr. Castillo/ortho OTHER SURGICAL HISTORY Dr. Graves/opthalmology HYSTERECTOMY OOPHORECTOMY BREAST BIOPSY BREAST CYST ASPIRATION KNEE ARTHROSCOPY W/ LATERAL RELEASE bilateral menisectomy ,Apr 2021 Medical History Medical History Date Comments Hx Other Medical 01-uro Hx Other Medical 02-ortho Hx Other Medical fx of rt ankle Hx Other Medical fx of rt collar bone Hx Other Medical fibrocystic jyoti asts Malignant neoplasm of cervix (CMS/HCC) (HCC) Cancer, cervical Hx Other Medical diverticulitis w/perforation Chronic obstructive pulmonar y disease (HCC) COPD Hx Other Medical cervical CA Hx Other Medical renal cysts Arthritis Arthritis Hx Other Medical Parkensons Hx Other Medical 2015 bladder prolaps ; Comments: MAIL[employer]STER 03/14/2015 -midline cystocele Hx Other Medical microscopic hem aturia; Comments: urology follows. Hx Other Medical 01-gi Fibrocystic breast Breast cyst GERD (gastroesophageal reflu x disease) increased last couple months Cataract Migraines Chronic kidney disease multiple cysts on both Neuromuscular disorder (HCC) Parkinson Stroke (HCC) cat scan Family History Medical History Relation Name Comments Alcohol abuse Brother 1 susan COPD Brother 1 susan Cancer Brother 1 susan Other Brother 1 susan lung cancer; Hypertension Brother 2 Hypertension; Depression Brother 3 Depression; Stroke Brother 4 Stroke; Heart disease Brother 5 Heart disease; Alcohol abuse Brother 6 Alcoholism; Coronary artery disease Brother 7 Isabelle nary artery disease; Other Brother 8 drug addicted; Hypertension Brother 9 Hypertension; Stroke Brother 10 Stroke; Other Brother 11 ptsd; Other Brother 12 essential tremo rs; Osteoporosis Brother 13 Osteoporosis; Heart attack Brother 14 ross SD; Other Brother 15 harjeet ptsd; Suicide Completion Brother 16 Kidney disease Father's Sister Renal dise ase; Alzheimer's disease Mother Rosanne Arthritis Mother Rosanne arthritis; Coronary artery disease Mother Rosanne Isabelle nary artery disease; Heart disease Mother Rosanne Heart disease; Hypertension Mother Rosanne Hypertension; Lupus Mother Rosanne Lupus erythemat osus; Migraines Mother Rosanne Migraines; Obesity Mother Rosanne Rheum arthritis Mother Rosanne RA; Stroke Mother Rosanne Stroke; Other Mother's Sister 2 vaginal CA ; Relation Name Status Comments Brother 1 susan Brother 2 Brother 3 Brother 4 Brother 5 Brother 6 Brother 7 Brother 8 Brother 9 Brother 10 Brother 11 Brother 12 Brother 13 Brother 14 ross Brother 15 harjeet Brother 16 Father's Sister Mother Rosanne Mother's Sister 1 Alive Mother's Sister 2 Social History Tobacco Use Types Packs/Day Years Used Date Smoking Tobacco: Former Cigarettes 1 43.6 0 09/23/1964 - 04/29/2008 Smokeless Tobacco: Never Tobacco Cessation:Counseling Given: Not Answered Comments:Smoking History Packs/day: 1 Packs Alcohol Use Standard Drinks/Week Comments No 0 (1 standard drink = 0.6 oz pur e alcohol) Humiliation, Afraid, Rape, and Kick questionnair e Answer Date Recorded Within the last year, have y ou been afraid of your partner or ex-partner? No 09/06/2020 Within the last year, have y ou been humiliated or emotionally abused in other ways by your partner or ex-partner? No Within the last year, have y ou been kicked, hit, slapped, or otherwise physically hurt by your partner or ex-partner? No 09/06/2020 Within the last year, have y ou been raped or forced to have any kind of sexual activity by your partner or ex-partner? No 09/06/2020 Social Connection and Isolat ion Panel [NHANES] Answer Date Recorded In a typical week, how many times do you talk on the phone with family, friends, or neighbors? More than three times a week 09/06/2020 How often do you get togethe r with friends or relatives? Once a week 09/06/2020 How often do you attend chur ch or presybeterian services? More than 4 times per year 09/06/2020 Do you belong to any clubs o r organizations such as zoroastrianism groups, unions, fraternal or athletic groups, or school groups? No 09/06/2020 How often do you attend meet ings of the clubs or organizations you belong to? Never 09/06/2020 Are you , , di vorced, , never , or living with a partner? 09/06/2020 AUDIT-C Answer Date Recorded Q1: How often do you have a drink containing alcohol? Never 09/02/2024 Q2: How many drinks containi ng alcohol do you have on a typical day when you are drinking? Patient does not drink Q3: How often do you have si x or more drinks on one occasion? Never 09/02/2024 Overall Financial Resource Strain (CARDIA) Answe r Date Recorded How hard is it for you to pa y for the very basics like food, housing, medical care, and heating? Somewhat hard 09/06/2020 PHQ-2 Answer Date Recorded PHQ-2 Total Score (If total score is 3 or more points, staff should administer the PHQ-9) 0 09/02/2024 [facility] - Occupational Stress Questionnaire Answer Date Recorded Feeling of Stress Not at all 09/14/2019 Exercise Vital Sign Answer Date Recorde d On average, how many days pe r week do you engage in moderate to strenuous exercise (like a brisk walk)? 5 days 09/06/2020 On average, how many minutes do you engage in exercise at this level? 20 min 09/06/2020 Hunger Vital Sign Answer Date Recorded Worried About Running Out of Food in the Last Ye ar Never true 09/14/2019 Ran Out of Food in the Last Year Never true 09/14/2019 PRAPARE - Transportation Answer Date Re corded Lack of Transportation (Medical) No 09/14/2019 Lack of Transportation (Non-Medical) No 09/14/2019 Comments No Sex and Gender Information Value Date Recorded Sex Assigned at Not on file Legal Sex Female 1:35 AM HEAD OF QUALITY Gender Identity Female 07/10/2021 9:16 AM CDT Sexual Orientation Choose not to disclose 2020 9:16 AM CDT Obstetrics History Para Term AB IAB SAB Ectopic Multiple Livin g Live Births 2 1 1 Date Outcome GA Total Labor Labor/2nd/3rd Weight Sex Type Anes PTL Litzy A1 A5 Name Clin Term Last Filed Vital Signs Vital Sign Reading Time Taken Comments Blood Pressure 130/86 09/07/2024 1:54 PM HEAD OF QUALITY Pulse 88 09/07/2024 1:54 PM HEAD OF QUALITY Temperature 36.2 ??C (97.1 ??F) 09/07/2024 1:54 PM CS T Respiratory Rate 16 09/07/2024 1:54 PM HEAD OF QUALITY Oxygen Saturation 98% 09/07/2024 1:54 PM HEAD OF QUALITY Inhaled Oxygen Concentration - - Weight 79.4 kg (175 lb) 09/07/2024 1:54 PM HEAD OF QUALITY Height 160 cm (5' 3 ) 09/07/2024 1:54 PM HEAD OF QUALITY Body Mass Index 31 09/07/2024 1:54 PM HEAD OF QUALITY Plan of Treatment Health Maintenance Due Date Last Done Comments Zoster Vaccine (1 of 2) 1996 Lung Cancer Screening 04/19/2024 04/19/2023, 021 Depression Screening 09/02/2025 09/02/2024, 05/27/2024, 04/22/2024, Additional history exists Fall Risk Assessment 09/02/2025 09/02/2024, 05/27/2024, 04/22/2024, Additional history exists Well Visit 65+ 09/02/2025 09/02/2024, 1204/2023, 09/10/2022, Additional history exists DTaP/Tdap/Td Vaccine (3 - Td or Tdap) 04/20/2032 04/20/2022, 09/09/2012, 09/23/1999 Hepatitis C Screening Completed 03/05/2016 Colon Cancer Screening-CT Colonography Discontinued 06/04/2016, 11/23/2010 Colon Cancer Screening-Colonoscopy Discontinued 06/04/2016, 11/23/2010 Colon Cancer Screening-DNA Stool Discontinued 06/04/20 16, 11/23/2010 Colon Cancer Screening-FIT Discontinued 06/04/2016, Colon Cancer Screening-FOBT Discontinued 06/04/2016, 0 11/23/2010 Colon Cancer Screening-Sigmoidoscopy Discontinued 06/04/2016, 11/23/2010 Colorectal Cancer Screening Discontinued Osteoporosis Screening-Bone Density Scan Discontinued 04/19/2023 Pneumococcal vaccine 65+ Discontinued 08/30/2023, 08/23 Hepatitis B Screening Completed 04/22/2024 Breast Cancer Screening-Mammogram Discontinued 05/28/2024, 04/19/2023, 01/02/2022, Additional history exists Covid-19 Vaccine Completed 07/20/2024, 06/2023, 06/12/2022, Additional history exists Influenza Vaccine Completed 07/20/2024, , 07/02/2023, Additional history exists Procedures Procedure Name Priority Date/Time Associated Diagnosis Comments CT ABDOMEN PELVIS W CONTRAST ED 09/07/2024 5:53 PM HEAD OF QUALITY EGFR STAT 09/07/2024 2:02 PM HEAD OF QUALITY DIFFERENTIAL AUTO STAT 09/07/2024 2:0 2 PM HEAD OF QUALITY LIPASE STAT 09/07/2024 2:02 PM HEAD OF QUALITY COMPREHENSIVE METABOLIC PANEL STAT 09/07/2024 2:02 PM HEAD OF QUALITY CBC WITH AUTO DIFFERENTIAL STAT 09/07/2024 2:02 PM HEAD OF QUALITY EGFR Routine 09/02/2024 2:50 PM HEAD OF QUALITY Parkinson's disease with dyskinesia and fluctuating manifestations (HCC) URINALYSIS, MICROSCOPIC ONLY Routine 09/02/2024 2:50 PM HEAD OF QUALITY Fever in adult Urinary urgency DIFFERENTIAL AUTO Routine 09/02/2024 2:5 0 PM HEAD OF QUALITY Parkinson's disease with dyskinesia and fluctuating manifestations (HCC) LIPID PANEL Routine 09/02/2024 2:50 PM HEAD OF QUALITY Parkinson's disease with dyskinesia and fluctuating manifestations (HCC) Hypercholesterolemia THYROID FUNCTION CASCADE Routine 09/02/2024 2:50 PM HEAD OF QUALITY Parkinson's disease with dyskinesia and fluctuating manifestations (HCC) VITAMIN B12 Routine 09/02/2024 2:50 PM HEAD OF QUALITY Parkinson's disease with dyskinesia and fluctuating manifestations (HCC) CBC WITH AUTO DIFFERENTIAL Routine 09/02/2024 2:50 PM HEAD OF QUALITY Parkinson's disease with dyskinesia and fluctuating manifestations (HCC) COMPREHENSIVE METABOLIC PANEL Routine 09/02/2024 2:50 PM HEAD OF QUALITY Parkinson's disease with dyskinesia and fluctuating manifestations (HCC) URINALYSIS AND REFLEX TO MICROSCOPIC AND CULTURE Routine 09/02/2024 2:50 PM HEAD OF QUALITY Fever in adult Urinary urgency SCREENING MAMMOGRAM BILATERAL W KEVIN Schedule Routine, Read Routine (OP Routine) 05/28/2024 2:21 PM CDT Screening mammogram, encounter for DEXA AXIAL SKELETON BONE DENSITY 1 OR MORE SITES Schedule Routine, Read Routine (OP Routine) 04/19/2023 8:28 AM CDT Age-related osteoporosis without current pathological fracture Postmenopausal CT LUNG CANCER SCREENING Schedule Routine, Read Routine (OP Routine) 04/19/2023 8:20 AM CDT Cigarette nicotine dependence in remission Personal history of tobacco use, presenting hazards to health COLONOSCOPY IMAGES 06/04/2016 SERUM HEPATITIS C AB Routine 03/05/2016 8:13 AM CDT from Last 3 Months or Most Recently Relevant to Health Maintenance Results * CT Abdomen Pelvis W Contrast (09/07/2024 5:53 PM HEAD OF QUALITY) Anatomical Region Laterality Modality Body N/A Computed Tomogra phy 09/07/2024 6:20 PM HEAD OF QUALITY Narrative 09/07/2024 6:24 PM HEAD OF QUALITY EXAM DESCRIPTION: ?? CT ABDOMEN PELVIS W CONTRAST REASON FOR STUDY: ?? Abdominal pain, acute, nonlocalized ?? Lower abdomen cramping and pain and diarrhea since Saturday. Hx of hysterectomy. ? TECHNIQUE: CT scan of the abdomen and pelvis performed with intravenous and ?? without ??oral contrast using helical scanning technique with dynamic intravenous contrast injection. Reconstructed coronal and sagittal MPR images reviewed. All images stored on PACS. Automated exposure control was used as a dose optimization technique for this examination. CONTRAST TYPE/DOSE: ?? 75mL of IOVERSOL 350 MG IODINE/ML INTRAVENOUS SYRINGE ?? injected via ?? intravenous COMPARISON: ?? CT abdomen pelvis 05/07/2022 FINDINGS: LOWER CHEST: ?? Small bibasilar atelectasis. ??No effusion. LIVER: ?? Diffuse hepatic steatosis. ??No focal hepatic lesion. GALLBLADDER: ?? No stones, wall thickening or pericholecystic fluid BILE DUCTS: ?? No intrahepatic or extrahepatic ductal dilatation. SPLEEN: ?? Normal-sized spleen containing multiple calcified granulomata. PANCREAS: ?? No identified cystic or solid masses. No significant calcifications. No adjacent inflammation or peripancreatic fluid collections. Pancreatic duct not dilated. ?? ADRENALS: ?? Normal. KIDNEYS/URINARY TRACT: ?? Normal-sized kidneys with symmetric enhancement. ?? Multiple bilateral cortical and parapelvic cysts. ??No suspicious renal lesion. No nephrolithiasis or hydronephrosis bilaterally. ?Urinary bladder is unremarkable. GI: ?? There is abnormal wall thickening and pericolonic stranding involving the sigmoid colon, consistent with acute colitis (2/109). ??No pericolonic fluid collection to suggest abscess. PERITONEUM: ?? No ascites or free air. RETROPERITONEUM: ?? No mass or adenopathy. REPRODUCTIVE: ?? No significant abnormality. VASCULATURE: ?? Atherosclerotic disease in the aorta, aortic branches, and iliacs MUSCULOSKELETAL: ?? No significant abnormality. OTHER: ?? No other abnormality. IMPRESSION: Acute uncomplicated sigmoid colitis. THIS IS AN ELECTRONICALLY VERIFIED FINAL REPORT 09/07/2024 6:24 PM - Electronically signed by ??Mone Glass M.D. FT: FT D: ??09/07/2024 6:24 PM T: ??09/07/2024 6:24 PM Report ID: [id number] Reading Location: ??[id number] Procedure Note Mone Sanchez MD - 09/07/2024 EXAM DESCRIPTION: CT ABDOMEN PELVIS W CONTRAST REASON FOR STUDY: Abdominal pain, acute, nonlocalized Lower abdomen cramping and pain and diarrhea since Saturday. Hx of hysterectomy. TECHNIQUE: CT scan of the abdomen and pelvis performed with intravenousand without oral contrast using helical scanning technique with dynamic intravenous contrast injection. Reconstructed coronal and sagittal MPRimages reviewed. All images stored on PACS. Automated exposure control was usedas a dose optimization technique for this examination. CONTRAST TYPE/DOSE: 75mL of IOVERSOL 350 MG IODINE/ML INTRAVENOUSSYRINGE injected via intravenous COMPARISON: CT abdomen pelvis 05/07/2022 FINDINGS: LOWER CHEST: Small bibasilar atelectasis. No effusion. LIVER: Diffuse hepatic steatosis. No focal hepatic lesion. GALLBLADDER: No stones, wall thickening or pericholecystic fluid BILE DUCTS: No intrahepatic or extrahepatic ductal dilatation. SPLEEN: Normal-sized spleen containing multiple calcified granulomata. PANCREAS: No identified cystic or solid masses. No significant calcifications. No adjacent inflammation or peripancreatic fluidcollections. Pancreatic duct not dilated. ADRENALS: Normal. KIDNEYS/URINARY TRACT: Normal-sized kidneys with symmetric enhancement. Multiple bilateral cortical and parapelvic cysts. No suspicious renallesion. No nephrolithiasis or hydronephrosis bilaterally. Urinary bladder is unremarkable. GI: There is abnormal wall thickening and pericolonic strandinginvolving the sigmoid colon, consistent with acute colitis (2/109). No pericolonic fluid collection to suggest abscess. PERITONEUM: No ascites or free air. RETROPERITONEUM: No mass or adenopathy. REPRODUCTIVE: No significant abnormality. VASCULATURE: Atherosclerotic disease in the aorta, aortic branches, and iliacs MUSCULOSKELETAL: No significant abnormality. OTHER: No other abnormality. IMPRESSION: Acute uncomplicated sigmoid colitis. THIS IS AN ELECTRONICALLY VERIFIED FINAL REPORT 09/07/2024 6:24 PM - Electronically signed by Mone Glass M.D. FT: FT Report ID: [id number] Reading Location: [place] [address] [address] PROCEDURES Final R esult * eGFR (09/07/2024 2:02 PM HEAD OF QUALITY) eGFR 75 >=60 mL/min/1. 73 m2 Comment: Interpretive Data Reference Interval Normal ?>/= 90 mL/min/1.73m2 Mildly decreased* ? 60 - 89 mL/min/1.73m2 Mildly to moderately decreased ?45 - 59 mL/min/1.73m2 Moderately to severely decreased ??30 - 44 mL/min/1.73m2 Severely decreased ?15 - 29 mL/min/1.73m2 Kidney Failure ?< 15 ??mL/min/1.73m2 *Relative to young adult level Estimated glomerular filtration rate is determined by the 2020 CKD-EPI equation recommended by the National Kidney Foundation (A Unifying Approach to GFR Estimation: Recommendations of the NKF-ASK Task Force on Reassessing the Inclusion of Race in Diagnosing Kidney Disease, JASN 2020). The CKD-EPI equation should not be used for patients with unstable renal function and has not been validated in children and those over 70. Current interpretive data was last reviewed 2021. Blood 09/07/2024 2:02 PM HEAD OF QUALITY 09/07/2024 2:06 PM HEAD OF QUALITY Smita Marsh MD LAB BLOOD ORDERABLES Laila varghese Result SB [facility] ([place]) 1 [facility] [place] [address] * Differential, auto (09/07/2024 2:02 PM HEAD OF QUALITY) Neutrophil abs 2.8 1.5 - 6.5 K/cumm Imm gran abs 0.0 0.0 - 0.1 K/cumm [facility] ([place]) Lymphocyte abs 1.8 0.8 - 3.3 K/cumm [facility] ([place]) Monocyte abs 0.6 0.2 - 0.8 K/cumm [facility] ([place]) Eosinophil abs 0.2 0.0 - 0.5 K/cumm [facility] ([place]) Basophil abs 0.0 0.0 - 0.1 K/cumm [facility] ([place]) Neutrophil pct 51.9 % [facility] ([place]) Comment: Interpretive Data Percent cell count reference ranges are not reported, since discordance with absolute values may lead to misinterpretation of CBC data. Current Interpretive Data was last revised on 2017. Imm gran pct 0.2 % [facility] ([place]) Comment: Interpretive Data Percent cell count reference ranges are not reported, since discordance with absolute values may lead to misinterpretation of CBC data. Current Interpretive Data was last revised on 2017. Lymphocyte pct 33.3 % [facility] ([place]) Comment: Interpretive Data Percent cell count reference ranges are not reported, since discordance with absolute values may lead to misinterpretation of CBC data. Current Interpretive Data was last revised on 2017. Monocyte pct 11.2 % [facility] ([place]) Comment: Interpretive Data Percent cell count reference ranges are not reported, since discordance with absolute values may lead to misinterpretation of CBC data. Current Interpretive Data was last revised on 2017. Eosinophil pct 2.9 % [facility] ([place]) Comment: Interpretive Data Percent cell count reference ranges are not reported, since discordance with absolute values may lead to misinterpretation of CBC data. Current Interpretive Data was last revised on 2017. Basophil pct 0.5 % [facility] ([place]) Comment: Interpretive Data Percent cell count reference ranges are not reported, since discordance with absolute values may lead to misinterpretation of CBC data. Current Interpretive Data was last revised on 2017. Blood 09/07/2024 2:02 PM HEAD OF QUALITY 09/07/2024 2:06 PM HEAD OF QUALITY Smita Marsh MD LAB BLOOD ORDERABLES Laila varghese Result SB [facility] ([place]) 1 [facility] [place] [address] * (ABNORMAL) CBC with auto differential (09/07/2024 2:02 PM HEAD OF QUALITY) WBC 5.5 3.8 - 9.9 K/cumm Hgb 14.1 11.9 - 15.5 g/dL [facility] ([place]) Hct 44.0 35.6 - 45.5 % [facility] ([place]) Plt 197 150 - 400 K/cumm [facility] ([place]) MPV 11.1 9.1 - 12.3 fL [facility] ([place]) RBC 4.78 3.90 - 5.20 M/cumm [facility] ([place]) MCV 92.1 81.3 - 96.4 fL [facility] ([place]) MCH 29.5 27.1 - 33.3 pg [facility] ([place]) MCHC 32.0(L) 32.3 - 35.7 g/dL [facility] ([place]) RDW CV 14.0 11.1 - 14.9 % [facility] ([place]) RDW SD 47.8 35.7 - 48.1 fL [facility] ([place]) NRBC abs 0.00 0.00 - 0.01 K/cumm [facility] ([place]) Blood (Blood, Venous) 09/07/2024 2:02 PM HEAD OF QUALITY 09/07/2024 2:06 PM HEAD OF QUALITY Smita Marsh MD LAB BLOOD ORDERABLES Laila varghese Result SB [facility] ([place]) 1 [facility] Department [place] [address] * Lipase (09/07/2024 2:02 PM HEAD OF QUALITY) Lipase 38 10 - 99 Units/L Blood (Blood, Venous) 09/07/2024 2:02 PM HEAD OF QUALITY 09/07/2024 2:06 PM HEAD OF QUALITY Smita Marsh MD LAB BLOOD ORDERABLES Laila l Result [facility] ([place]) 1 [facility] Department [place] [address] * (ABNORMAL) Comprehensive metabolic panel (09/07/2024 2:02 PM HEAD OF QUALITY) Sodium 140 135 - 145 mmol/L Potassium, pl 4.4 3.3 - 4.9 mmol/L [facility] ([place] Chloride 106 97 - 110 mmol/L [facility] ([place]) CO2 24 22 - 32 mmol/L [facility] ([place]) Anion gap 10 2 - 15 mmol/L [facility] ([place]) BUN 18 6 - 25 mg/dL [facility] ([place]) Creatinine 0.80 0.60 - 1.10 mg/dL [facility] ([place]) Glucose 85 70 - 199 mg/dL [facility] ([place]) Comment: Interpretive Data Fasting glucose >/= 126 mg/dl is diagnostic for diabetes. ?? Fasting is defined as no caloric intake for at least 8 hours. Fasting glucose between 100 mg/dl to 125 mg/dl is diagnostic of prediabetes. In a patient with classic symptoms of hyperglycemia or hyperglycemic crisis, a random glucose >/= 200 mg/dl is diagnostic for diabetes. In the absence of unequivocal hyperglycemia, results should be confirmed by repeat testing. The classification and Diagnosis of Diabetes Diabetes Care 202; 46: S19-S40. Current interpretive data was last revised 2022. Calcium 10.8(H) 8.5 - 10.3 mg/dL [facility] ([place]) Bilirubin, total 0.6 0.1 - 1.2 mg/dL [facility] ([place]) Protein, pl 6.9 6.5 - 8.5 g/dL [facility] ([place]) Albumin 4.0 3.5 - 5.0 g/dL [facility] ([place]) Alk phos 89 40 - 130 Units/L [facility] ([place]) ALT <5(L) 7 - 45 Units/L [facility] ([place]) AST 18 10 - 45 Units/L [facility] ([place]) Blood 09/07/2024 2:02 PM HEAD OF QUALITY 09/07/2024 2:06 PM HEAD OF QUALITY us Smita Marsh MD LAB BLOOD ORDERABLES Laila varghese Result [facility] ([place]) 1 [facility] Department [place] [address] * eGFR (09/02/2024 2:50 PM HEAD OF QUALITY) eGFR 64 >=60 mL/min/1. 73 m2 Comment: Interpretive Data Reference Interval Normal ?>/= 90 mL/min/1.73m2 Mildly decreased* ? 60 - 89 mL/min/1.73m2 Mildly to moderately decreased ?45 - 59 mL/min/1.73m2 Moderately to severely decreased ??30 - 44 mL/min/1.73m2 Severely decreased ?15 - 29 mL/min/1.73m2 Kidney Failure ?< 15 ??mL/min/1.73m2 *Relative to young adult level Estimated glomerular filtration rate is determined by the 2020 CKD-EPI equation recommended by the National Kidney Foundation (A Unifying Approach to GFR Estimation: Recommendations of the NKF-ASK Task Force on Reassessing the Inclusion of Race in Diagnosing Kidney Disease, JASN 2020). The CKD-EPI equation should not be used for patients with unstable renal function and has not been validated in children and those over 70. Current interpretive data was last reviewed 2021. Blood 09/02/2024 2:50 PM HEAD OF QUALITY 09/02/2024 3:38 PM HEAD OF QUALITY us Isidro Schultz MD LAB BLOOD ORDERABLES Fi nal Result [facility] ([place]) 1 [facility] Department [place] [address] * Differential, auto (09/02/2024 2:50 PM HEAD OF QUALITY) Neutrophil abs 2.6 1.5 - 6.5 K/cumm Imm gran abs 0.0 0.0 - 0.1 K/cumm [facility] ([place]) Lymphocyte abs 1.4 0.8 - 3.3 K/cumm [facility] ([place]) Monocyte abs 0.5 0.2 - 0.8 K/cumm [facility] ([place]) Eosinophil abs 0.1 0.0 - 0.5 K/cumm [facility] ([place]) Basophil abs 0.0 0.0 - 0.1 K/cumm [facility] ([place]) Neutrophil pct 55.0 % [facility] ([place]) Comment: Interpretive Data Percent cell count reference ranges are not reported, since discordance with absolute values may lead to misinterpretation of CBC data. Current Interpretive Data was last revised on 2017. Imm gran pct 0.0 % [facility] ([place]) Comment: Interpretive Data Percent cell count reference ranges are not reported, since discordance with absolute values may lead to misinterpretation of CBC data. Current Interpretive Data was last revised on 2017. Lymphocyte pct 30.2 % [facility] ([place]) Comment: Interpretive Data Percent cell count reference ranges are not reported, since discordance with absolute values may lead to misinterpretation of CBC data. Current Interpretive Data was last revised on 2017. Monocyte pct 11.4 % [facility] ([place]) Comment: Interpretive Data Percent cell count reference ranges are not reported, since discordance with absolute values may lead to misinterpretation of CBC data. Current Interpretive Data was last revised on 2017. Eosinophil pct 2.8 % [facility] ([place]) Comment: Interpretive Data Percent cell count reference ranges are not reported, since discordance with absolute values may lead to misinterpretation of CBC data. Current Interpretive Data was last revised on 2017. Basophil pct 0.6 % [facility] ([place]) Comment: Interpretive Data Percent cell count reference ranges are not reported, since discordance with absolute values may lead to misinterpretation of CBC data. Current Interpretive Data was last revised on 2017. Blood 09/02/2024 2:50 PM HEAD OF QUALITY 09/02/2024 3:39 PM HEAD OF QUALITY Isidro Schultz MD LAB BLOOD ORDERABLES Fi nal Result Performing Organization Address [facility]/ZIP Co de Phone Number SB [facility] ([place]) 1 [facility] [place] [address] * Thyroid Function [place] (09/02/2024 2:50 PM HEAD OF QUALITY) TSH 3.27 0.30 - 4.20 mcIUnit/mL Blood 09/02/2024 2:50 PM HEAD OF QUALITY 09/02/2024 3:38 PM HEAD OF QUALITY Isidro Schultz MD LAB BLOOD ORDERABLES Fi nal Result Performing Organization Address [facility] Co de Phone Number SB [facility] ([place]) 1 [facility] [place] [address] * (ABNORMAL) Urinalysis reflex to microscopic and culture Urine, clean voided (09/02/2024 2:50 PM HEAD OF QUALITY) Color, ur Yellow Yellow Clarity, ur Clear Clear [facility] ([place]) Specific gravity, ur 1.022 1.003 - 1.030 SB [facility] ([place]) pH, urine 5.5 SB [facility] ([place]) Comment: Interpretive Data ? Urine pH is affected by diet, medications, systemic acid-base disturbances, and renal tubular function. ??pH may affect urinary stone formation. ??For example, urine pH below 6.0 may help reduce the tendency for calcium phosphate stones and pH greater than 6.0 may reduce the tendency for uric acid stone formation. Source: [facility] [place] Current Interpretive Data was last revised on 2017 Protein, ur ql Negative Negative [facility] ([place]) Glucose, ur ql Negative Negative [facility] ([place]) Ketones, ur Negative Negative [facility] ([place]) Bilirubin, ur Negative Negative [facility] ([place]) Blood, ur 1+(A) Negative [facility] ([place]) Urobilinogen, ur <2.0 <2.0 mg/dL [facility] ([place]) Nitrite, ur Negative Negative [facility] ([place]) Leukocyte esterase, ur 3+(A) Negative [facility] ([place]) UA reflex comment Reflex to microscopic UA will be performed. [facility] ([place]) Urine, clean voided 09/02/2024 2:50 PM HEAD OF QUALITY 09/02/2024 3:39 PM HEAD OF QUALITY us Isidro Schultz MD LAB MICROBIOLOGY - [facility] ORDERABLES Final Result [facility] ([place]) 1 [facility] Department of Laboratories [place], [place] [id number] * (ABNORMAL) CBC with auto differential (09/02/2024 2:50 PM HEAD OF QUALITY) WBC 4.6 3.8 - 9.9 K/cumm Hgb 14.9 11.9 - 15.5 g/dL [facility] ([place]) Hct 47.2(H) 35.6 - 45.5 % [facility] ([place]) Plt 147(L) 150 - 400 K/cumm [facility] ([place]) MPV 12.3 9.1 - 12.3 fL [facility] ([place]) RBC 5.05 3.90 - 5.20 M/cumm [facility] ([place]) MCV 93.5 81.3 - 96.4 fL [facility] ([place]) MCH 29.5 27.1 - 33.3 pg [facility] ([place]) MCHC 31.6(L) 32.3 - 35.7 g/dL [facility] ([place]) RDW CV 13.9 11.1 - 14.9 % [facility] ([place]) RDW SD 47.0 35.7 - 48.1 fL [facility] ([place]) NRBC abs 0.00 0.00 - 0.01 K/cumm [facility] ([place]) Blood 09/02/2024 2:50 PM HEAD OF QUALITY 09/02/2024 3:39 PM HEAD OF QUALITY Isidro Schultz MD LAB BLOOD ORDERABLES Fi nal Result [facility] ([place]) 1 [facility] [place] [employer] [place] [address] * (ABNORMAL) Urinalysis, microscopic only (09/02/2024 2:50 PM HEAD OF QUALITY) WBC, ur 0-5 0 - 5 /HPF RBC, ur 0-2 0 - 2 /HPF [facility] ([place]) Epithelial cells, squamous, ur 1-5 0 - 5 /HPF [facility] ([place]) Mucous, ur Present(A) [facility] A ([place]) Culture Reflex Comment Reflex conditions for urine culture (WBC >10) not met. [facility] ([place]) Urine, clean voided 09/02/2024 2:50 PM HEAD OF QUALITY 09/02/2024 3:44 PM HEAD OF QUALITY Isidro Schultz MD LAB URINE ORDERABLES Fi nal Result [facility] ([place]) 1 [facility] [place] [employer] [place] [address] * Vitamin B12 (09/02/2024 2:50 PM HEAD OF QUALITY) Vitamin B12 1,096 230 - 1,250 pg/mL Blood 09/02/2024 2:50 PM HEAD OF QUALITY 09/02/2024 3:38 PM HEAD OF QUALITY us Isidro Schultz MD LAB BLOOD ORDERABLES Fi nal Result [facility] ([place]) 1 [facility] [place] [address] * Lipid panel (09/02/2024 2:50 PM HEAD OF QUALITY) Cholesterol 170 30 - 199 mg/dL Comment: Interpretive Data Ages < or = 19 years ??Acceptable: ? <170 mg/dL ??Borderline high: ??170-199 mg/dL ??High: ? >or= 200 mg/dL Ages > or = 20 years ??Desirable: ?<200 mg/dL ??Borderline high: ??200-239 mg/dL ??High: ? >or= 240 mg/dL Literature References: 1. Expert Panel on Integrated Guidelines for Cardiovascular Health and Risk Reduction in Children and Adolescents. Pediatrics 2011;128:S213 2. NCEP Expert Panel. Circulation 2004;110:227 Current Interpretive Data was last revised on 2018. Triglycerides 78 <=149 mg/dL [facility] ([place]) Comment: Interpretive Data Ages < or = 9 years ??Acceptable: ? <75 mg/dL ??Borderline high: ??75-99 mg/dL ??High: ? >or= 100 mg/dL Ages 10 to 20 years ??Acceptable: ? <90 mg/dL ??Borderline high: ??90-129 mg/dL ??High: ? >or= 130 mg/dL Ages > or = 20 years ??Desirable: ?<150 mg/dL ??Borderline high: ??150-199 mg/dL ??High: ? 200-499 mg/dL ?Very high: ?? >or= 499 mg/dL Literature References: 1. Expert Panel on Integrated Guidelines for Cardiovascular Health and Risk Reduction in Children and Adolescents. Pediatrics 2011;128:S213 2. NCEP Expert Panel. Circulation 2004;110:227 Current Interpretive Data was last revised on 2018. HDL 69 >=40 mg/dL [facility] ([place]) Comment: Interpretive Data Ages < or = 19 years ??Acceptable: ? >45 mg/dL ??Borderline low: ?? 40-45 mg/dL ??Low: ? <40 mg/dL Ages > or = 20 years ??Desirable: ?>or= 60 mg/dL ??Low: ? <40 mg/dL Literature References: 1. Expert Panel on Integrated Guidelines for Cardiovascular Health and Risk Reduction in Children and Adolescents. Pediatrics 2011;128:S213 2. NCEP Expert Panel. Circulation 2004;110:227 Current Interpretive Data was last revised on 2018. LDL, calculated 86 <=129 mg/dL [facility] ([place]) Comment: Interpretive Data Ages < or = 19 years ??Acceptable: ? <110 mg/dL ??Borderline high: ??110-129 mg/dL ??High: ?>or= 130 mg/dL Ages > or = 20 years ??Optimal: ? <100 mg/dL ??Near optimal: ?100-129 mg/dL ??Borderline high: ?? 130-159 mg/dL ??High: ?>160 mg/dL Calculated using the Jordan LDL-C estimating equation. This equation was implemented on 2024. Prior to this date LDL-C was estimated using the Friedewald equation. Literature References: 1. Expert Panel on Integrated Guidelines for Cardiovascular Health and Risk Reduction in Children and Adolescents. Pediatrics 2011;128:S213 2. NCEP Expert Panel. Circulation 2004;110:227 3. [place] et al. SHANE Cardiol. 2020 January 21;5(5):540-548. doi: 10.1001/jamacardio.2020.0013 Current Interpretive Data was last revised on 2024. Non-HDL Cholesterol 101 mg/dL [facility] ([place]) Comment: Interpretive Data Ages < or = 19 years ??Acceptable: ?<120 mg/dL ??Borderline high: ??120-144 mg/dL ??High: ?>145 mg/dL Ages > or = 20 years ??When triglycerides are >200 mg/dL, Non-HDL cholesterol is a secondary target of ? therapy with treatment goals that are 30 mg/dL greater than the LDL cholesterol target. ? Literature References: 1. Expert Panel on Integrated Guidelines for Cardiovascular Health and Risk Reduction in Children and Adolescents. Pediatrics 2011;128:S213 2. NCEP Expert Panel. Circulation 2004;110:227 Current Interpretive Data was last revised on 2018. Chol/HDL ratio 2 [facility] ([place]) Blood 09/02/2024 2:50 PM HEAD OF QUALITY 09/02/2024 3:38 PM HEAD OF QUALITY Narrative SB [facility] ([place]) - 09/02/2024 4:20 PM HEAD OF QUALITY Has the patient been fasting for 8 hours or more?->No us Isidro Schultz MD LAB BLOOD ORDERABLES Fi nal Result [facility] ([place]) 1 [facility] [place] [address] * (ABNORMAL) Comprehensive metabolic panel (09/02/2024 2:50 PM HEAD OF QUALITY) Sodium 138 135 - 145 mmol/L Potassium, pl 4.8 3.3 - 4.9 mmol/L [facility] ([place]) Chloride 105 97 - 110 mmol/L [facility] ([place]) CO2 27 22 - 32 mmol/L [facility] ([place]) Anion gap 7 2 - 15 mmol/L [facility] ([place]) BUN 29(H) 6 - 25 mg/dL [facility] ([place]) Creatinine 0.92 0.60 - 1.10 mg/dL [facility] ([place]) Glucose 87 70 - 199 mg/dL [facility] ([place]) Comment: Interpretive Data Fasting glucose >/= 126 mg/dl is diagnostic for diabetes. ?? Fasting is defined as no caloric intake for at least 8 hours. Fasting glucose between 100 mg/dl to 125 mg/dl is diagnostic of prediabetes. In a patient with classic symptoms of hyperglycemia or hyperglycemic crisis, a random glucose >/= 200 mg/dl is diagnostic for diabetes. In the absence of unequivocal hyperglycemia, results should be confirmed by repeat testing. The classification and Diagnosis of Diabetes Diabetes Care 2021; 46: S19-S40. Current interpretive data was last revised 2022. Calcium 10.6(H) 8.5 - 10.3 mg/dL [facility] ([place]) Bilirubin, total 0.6 0.1 - 1.2 mg/dL [facility] ([place]) Protein, pl 7.4 6.5 - 8.5 g/dL [facility] ([place]) Albumin 4.5 3.5 - 5.0 g/dL [facility] ([place]) Alk phos 99 40 - 130 Units/L [facility] ([place]) ALT <5(L) 7 - 45 Units/L [facility] ([place]) AST 19 10 - 45 Units/L [facility] ([place]) Blood 09/02/2024 2:50 PM HEAD OF QUALITY 09/02/2024 3:38 PM HEAD OF QUALITY us Isidro Schultz MD LAB BLOOD ORDERABLES Fi nal Result [facility] ([place]) 1 [facility] [place] [address] * Screening Mammogram Bilateral W Kevin (05/28/2024 2:21 PM CDT) Anatomical Region Laterality Modality Breast Bilateral Mammography 05/28/2024 2:51 PM CDT Impressions 05/28/2024 2:51 PM CDT There is no mammographic evidence of malignancy. A 1 year screening mammogram is recommended. BI-RADS: 1 - Negative. The patient has been or will be contacted. The patient will be entered into a reminder system with a target due date of 1 year for her next mammogram. Electronically signed by: ERIC GARCIA Narrative 05/28/2024 2:51 PM CDT EXAMINATION: SCREENING MAMMOGRAM BILATERAL W KEVIN ORDERING HEALTHCARE PROVIDER: SELF SCREENING MAMMOGRAM HISTORY: Routine screening mammography. COMPARISON: ??04/19/2023, 01/02/2022, 09/14/2020. TECHNIQUE: CC and MLO views of both breasts were obtained with digital technique using digital breast tomosynthesis with C view. Computer aided detection was utilized. FINDINGS: DENSITY: The breasts have scattered areas of fibroglandular density. BREASTS: There is no new suspicious finding in either breast on mammogram. us Self Screening Mammogram IMG MAMMO PROCEDURES Fi nal Result * Dexa Axial Skeleton Bone Density 1 or 2 Site (04/19/2023 8:28 AM CDT) Anatomical Region Laterality Modality Body N/A Other 04/20/2023 8:23 AM CDT Narrative 04/20/2023 8:24 AM CDT EXAM DESCRIPTION: DEXA AXIAL SKELETON BONE DENSITY 1 OR MORE SITES REASON FOR STUDY: 77 y/o ?? year old ??F ??with given history of: ??surveillance osteoporosis ?? Screening. ? 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 Maximum height: ??68 ??inches ? Weight: ??172 ??pounds Risk factors: ??Adult fracture, cancer, inflammatory bowel disease COMPARISON: None available FINDINGS: AP LUMBAR SPINE L1-L4: Total BMD is 0.793 g/cm2 T-score is -2.3 LEFT HIP: Total BMD is 0.646 g/cm2 T-score is -2.4 Femoral neck BMD is 0.516 g/cm2 T-score is -3.0 ?? FRAX: FRAX not reported due to T-scores of hip, femoral neck and/or spine being at or below -2.5 (Osteoporosis). IMPRESSION: Osteoporosis. REFERENCE: Bone mineral density: ? Normal (T-score above or = -1.0) ? Low bone mass ??(T-score between -1.0 and -2.5) replaces the previously used term osteopenia ? Osteoporosis (T-score = or below -2.5) Medical evaluation for secondary causes of low bone mineral density may be appropriate. FRAX is a World Health Organization validated fracture risk assessment tool that calculates a person's 10 year probability of a major osteoporosis related fracture and hip fracture. ??According to the National Osteoporosis Foundation guidelines, postmenopausal women and men age 50 or older with low bone mass and a 10 year probability of a major osteoporosis related fracture = or greater than 20% or a 10 year probability of a hip fracture = or greater than 3% should be considered for treatment. For further information, including treatment recommendations, please refer to the 2019 ISCD Official Positions (http://www.iscd.org) and the NOF's Clinician's Guide to Prevention and Treatment of Osteoporosis (http://www.nof.org/professionals/clinical-guidelines) THIS IS AN ELECTRONICALLY VERIFIED FINAL REPORT 04/20/2023 8:24 AM - Electronically signed by ??Gab Baumann M.D. MF: BLAKE D: ??04/20/2023 8:24 AM T: ??04/20/2023 8:24 AM Report ID: [id number] Reading Location: ??[id number] Procedure Note Gab Baumann MD - 04/20/2023 EXAM DESCRIPTION: DEXA AXIAL SKELETON BONE DENSITY 1 OR MORE SITES REASON FOR STUDY: 77 y/o year old F with given history of:surveillance osteoporosis Screening. Pigment Mixer/Model: UXPin (S/N [id number]) CLINICAL INFORMATION: Current height: 66 inches Maximum height: 68 inches Weight: 172 pounds Risk factors: Adult fracture, cancer, inflammatory bowel disease COMPARISON: None available FINDINGS: AP LUMBAR SPINE L1-L4: Total BMD is 0.793 g/cm2 T-score is -2.3 LEFT HIP: Total BMD is 0.646 g/cm2 T-score is -2.4 Femoral neck BMD is 0.516 g/cm2 T-score is -3.0 FRAX: FRAX not reported due to T-scores of hip, femoral neck and/or spine beingat or below -2.5 (Osteoporosis). IMPRESSION: Osteoporosis. REFERENCE: Bone mineral density: Normal (T-score above or = -1.0) Low bone mass (T-score between -1.0 and -2.5) replaces thepreviously used term osteopenia Osteoporosis (T-score = or below -2.5) Medical evaluation for secondary causes of low bone mineral density may be appropriate. FRAX is a World Health Organization validated fracture risk assessmenttool that calculates a person's 10 year probability of a major osteoporosisrelated fracture and hip fracture. According to the National OsteoporosisFoundation guidelines, postmenopausal women and men age 50 or older with low bonemass and a 10 year probability of a major osteoporosis related fracture = or greater than 20% or a 10 year probability of a hip fracture = or greaterthan 3% should be considered for treatment. For further information, including treatment recommendations, please referto the 2019 ISCD Official Positions (http://www.iscd.org) and the NOF's Clinician's Guide to Prevention and Treatment of Osteoporosis (http://www.nof.org/professionals/clinical-guidelines) THIS IS AN ELECTRONICALLY VERIFIED FINAL REPORT 04/20/2023 8:24 AM - Electronically signed by Gab Baumann M.D. MF: BLAKE Report ID: [id number] Reading Location: [place] [address] us Loree West DO IMG DXA PROCEDURES Final R esult * CT Lung Cancer Screening (04/19/2023 8:20 AM CDT) Anatomical Region Laterality Modality Chest N/A Computed Tomogra phy 04/21/2023 10:1 0 AM CDT Narrative 04/21/2023 10:16 AM CDT EXAM DESCRIPTION: ?? CT LUNG CANCER SCREENING REASON FOR STUDY: Screening CT of the chest in a ?? former ??smoker with a ??43 ?? pack year smoking history. Additional history: Smoking cessation 14 years ago at age 63. ??Chronic obstructive pulmonary disease. TECHNIQUE: Low dose CT scan of the chest was performed without intravenous contrast using helical scanning technique. The exam extends from the lung apices through the lung bases. Automatic exposure control was used as a dose optimization technique. NOTE: This study was performed for the specific purposes of lung cancer screening and is not an alternative to diagnostic chest CT. RADIATION DOSE: CT dose index volume (CTDIvol) = ?? 1.32 ??mGy COMPARISON: ?? CT of the chest dated 01/12/2021 FINDINGS: SMOKING RELATED LUNG DISEASE: ?? There is mild centrilobular and paraseptal emphysema with upper lung predominance, associated with unchanged areas of biapical pleuroparenchymal scarring. LUNG NODULES: ?? There are scattered calcified granulomas. ?? Unchanged 3 mm solid noncalcified nodule is redemonstrated in the left upper lobe apicoposterior segment on axial image 67. ??No new suspicious lung nodules are seen. CORONARY ARTERY CALCIFICATION: ??Moderate. OTHER: ?? Unchanged mild areas of peripheral scarring. ??Minimal bibasilar atelectasis. ??There is no focal consolidation. ??The airways are patent and normal in caliber. ??There is no bronchial wall thickening. ??No pleural effusion or pneumothorax. ??No suspicious lymphadenopathy is seen in the chest. Calcified right hilar lymph nodes are sequelae of old, healed granulomatous disease. ??The heart size is normal. ?? No pericardial thickening or effusion. ?? The thoracic aorta is atherosclerotic, but normal in caliber. ??The central pulmonary arteries have normal caliber. ??Limited low-dose images through the upper abdomen are unremarkable. ??Examination of bone windows demonstrates no suspicious lytic or blastic lesions. IMPRESSION: Unchanged 3 mm solid nodule in the left upper lobe. No new suspicious lung nodules are seen. Mild centrilobular and paraseptal emphysema with upper lung predominance, associated with unchanged areas of biapical pleuroparenchymal scarring. Other findings as described above. Lung-RADS category ??2: Benign appearance or behavior. Recommendation: ??Low dose Screening CT of chest in 12 months. THIS IS AN ELECTRONICALLY VERIFIED FINAL REPORT 04/21/2023 10:16 AM - Electronically signed by ??Eric Garnica M.D. RL: TITA D: ??04/21/2023 10:16 AM T: ??04/21/2023 10:16 AM Report ID: [id number] Reading Location: ??[id number] Procedure Note Eric Quarles MD - 04/21/2023 EXAM DESCRIPTION: CT LUNG CANCER SCREENING REASON FOR STUDY: Screening CT of the chest in a former smoker with a43 pack year smoking history. Additional history: Smoking cessation 14 yearsago at age 63. Chronic obstructive pulmonary disease. TECHNIQUE: Low dose CT scan of the chest was performed without intravenous contrast using helical scanning technique. The exam extends from the lung apices through the lung bases. Automatic exposure control was used as adose optimization technique. NOTE: This study was performed for the specific purposes of lung cancer screening and is not an alternative to diagnostic chest CT. RADIATION DOSE: CT dose index volume (CTDIvol) = 1.32 mGy COMPARISON: CT of the chest dated 01/12/2021 FINDINGS: SMOKING RELATED LUNG DISEASE: There is mild centrilobular and paraseptal emphysema with upper lung predominance, associated with unchanged areas of biapical pleuroparenchymal scarring. LUNG NODULES: There are scattered calcified granulomas. Unchanged 3 mm solid noncalcified nodule is redemonstrated in the left upper lobe apicoposterior segment on axial image 67. No new suspicious lung nodulesare seen. CORONARY ARTERY CALCIFICATION: Moderate. OTHER: Unchanged mild areas of peripheral scarring. Minimal bibasilar atelectasis. There is no focal consolidation. The airways are patent and normal in caliber. There is no bronchial wall thickening. No pleural effusion or pneumothorax. No suspicious lymphadenopathy is seen in thechest. Calcified right hilar lymph nodes are sequelae of old, healedgranulomatous disease. The heart size is normal. No pericardial thickening oreffusion. The thoracic aorta is atherosclerotic, but normal in caliber. The central pulmonary arteries have normal caliber. Limited low-dose images throughthe upper abdomen are unremarkable. Examination of bone windows demonstratesno suspicious lytic or blastic lesions. IMPRESSION: Unchanged 3 mm solid nodule in the left upper lobe. No new suspiciouslung nodules are seen. Mild centrilobular and paraseptal emphysema with upper lung predominance, associated with unchanged areas of biapical pleuroparenchymal scarring. Other findings as described above. Lung-RADS category 2: Benign appearance or behavior. Recommendation: Low dose Screening CT of chest in 12 months. THIS IS AN ELECTRONICALLY VERIFIED FINAL REPORT 04/21/2023 10:16 AM - Electronically signed by Eric Garnica M.D. RL: TITA Report ID: [id number] Reading Location: [id number] us Loree West DO IMG CT PROCEDURES Final Re sult * COLONOSCOPY IMAGES (06/04/2016) Anatomical Region Laterality Modality Other Narrative 06/04/2016 Ordered by an unspecified provider. us Historical Provider MD GI PROCEDURE ORDERABLES F inal Result * Serum Hepatitis C ab (03/05/2016 8:13 AM CDT) HCV ab Negative Negative HISTORICAL RESULTS Serum 03/05/2016 8:13 AM CDT us Iza Jay MD LAB BLOOD ORDERABLES Final Result Performing Organization Address City/State/[facility] Co de Phone Number HISTORICAL RESULTS from Last 3 Months or Most Recently Relevant to Health Maintenance Insurance MEDICARE [facility] MEDICARE [facility] MEDICARE [employer] MEDICARE SUPPLEMENT Advance Directives For more information, please contact: [phone] Documents on File Type Date Recorded Patient Vegetable Inspector Expl anation ADVANCE DIRECTIVE 09/06/2020 10:02 AM [facility] SUPERVISOR-MEDICAL Care Teams Dining Service Supervisor Relationship Specialty Start Date End Date Isidro Schultz MD [address] [place] Minor [facility] [address] [place] [address] PCP - General Family Medicine 03/03/24 Jarad Rodríguez MD [address] S[place]HA Mcneil [facility] [address] [place] [address] Surgeon Orthopedic Surgery 09/06/20 Noe Rodriguez MD [address] [place] [address] Consulting Physician Urology 09/06/20 Susan Dc DO [address] [place] [address] Consulting Physician Cardiovascular Disease 09/06/20 Fawad White MD [address] [place] [address] Consulting Physician Neurology 09/10/22
--- OUTSIDE RECORDS SUMMARY | 2024-10-15 13:12 | XMS_ITS | Referral Summary ---
Author Organization [facility] Address [address] [place] [address] Care Team Providers Care Residential Mortgage Manager Name Role Phone Jarad Rodríguez MD Unavailable Noe Rodriguez MD Unavailable [phone] Keith Dc DO Unavailable [phone] Fawad White MD Unavailable [phone] Isidro Schultz MD Primary Care Provider Encounters Date Type Department Care Team Description 09/07/2024 4:19 PM PLANT CARE WORKER - 09/07/2024 7:17 PM PLANT CARE WORKER Emergency [facility] Emergency Department [address] [place] [address] Colitis (Primary Dx) Discharge Disposition: Discharge to home or self care 09/07/2024 Nurse Triage [facility] Primary Care at [address] [place] [phone] Isidro Schultz MD 09/02/2024 2:50 PM PLANT CARE WORKER Lab [facility] [address] [place], [place] Parkinson's disease with dyskinesia and fluctuating manifestations (HCC); Hypercholesterolemia; Fever in adult; Urinary urgency 09/02/2024 2:15 PM PLANT CARE WORKER Office Visit [facility] Primary Care at [address] [place] [phone] Isidro Schultz MD Medicare annual wellness visit, subsequent (Primary Dx); Recurrent cystitis; Hypercholesterolemia; Gastroesophageal reflux disease without esophagitis; Age-related osteoporosis without current pathological fracture; Class 1 obesity due to excess calories with serious comorbidity and body mass index (BMI) of 30.0 to 30.9 in adult; Parkinson's disease with dyskinesia and fluctuating manifestations (HCC) 08/27/2024 Documentation [facility] [address] [place] [phone] Rosales Kimberley PalomoangeloZEE 08/12/2024 1:30 PM PLANT CARE WORKER Office Visit [facility] [address] [place] [phone] Fawad White MD Parkinson's disease with dyskinesia and fluctuating manifestations (HCC) (Primary Dx) from Last 3 Months Allergies Active Allergy Reactions Criticality Noted Date [...] mouth daily 90 tablet 1 03/03/20 24 024 Discontinued Active Problems Problem Noted Date Diagnosed Date Recurrent cystitis 05/27/2024 Assessment & Plan (09/02/2024 3:10 PM PLANT CARE WORKER): -chronic, not at goal - recurring issue [...] 1 month -patient has been seen at [facility] and by PCP for this issue -patient [...] plan Varicose veins of both lower extremities 024 Assessment & Plan (03/04/2024 10:04 PM CDT): [...] 09/10/2022 Assessment & Plan (09/10/2022 11:14 AM PLANT CARE WORKER): Encouraged patient to make sure she keeps her bowels moving on a daily basis to help minimize his symptoms of acid reflux or heartburn. She reports MOM helps. May continue. Consider MiraLax daily. Increase water intake. Gastroesophageal reflux disease without esophagi tis 09/10/2022 Assessment & Plan (09/02/2024 3:11 PM PLANT CARE WORKER): - chronic, not at goal - patient [...] therapy Assessment & Plan (09/07/2023 12:47 PM PLANT CARE WORKER): Asymptomatic. Stable. Continue current prescription medications, omeprazole. Assessment & Plan (09/10/2022 11:13 AM PLANT CARE WORKER): Labs ordered, will follow. Acne rosacea 01/24/2022 [...] 07/18/2020 Assessment & Plan (09/08/2021 11:49 AM PLANT CARE WORKER): Follows with Neuro. Aortic atherosclerosis 01/14/2020 Assessment & Plan (09/10/2022 11:14 AM PLANT CARE WORKER): Asymptomatic. Stable. Continue current prescription medications. Assessment & Plan (09/08/2021 11:49 AM PLANT CARE WORKER): Asymptomatic, continuing aspirin and statin. Assessment & [...] 04/08/2019 Assessment & Plan (09/02/2024 2:26 PM PLANT CARE WORKER): Wt Readings from Last 3 Encounters: 09/02/24 [...] diet. 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 She has some levodopa induced sleepiness but [...] email. 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 She has lifelong constipation that [...] visit). Assessment & Plan (09/10/2022 11:14 AM PLANT CARE WORKER): Stable. Cont. Current prescription medications. Managed by [...] sleepiness. Assessment & Plan (09/08/2021 11:49 AM PLANT CARE WORKER): Stable, patient follows with Neuro Assessment & [...] Neurology. Assessment & Plan (09/06/2020 9:12 AM PLANT CARE WORKER): Stable, followed by neurology Continue current regimen [...] and also gave her info on the APDA youtube channel. She has pretty substantial levodopa [...] to increase salt and fluids. Age-related osteoporosis arlene mendoza current pathological fracture 09/09/2012 Assessment & Plan (09/07/2024 1:35 AM PLANT CARE WORKER): - chronic, stable - currently takes Fosamax [...] therapy Assessment & Plan (09/07/2023 12:47 PM PLANT CARE WORKER): Weight-bearing exercises recommended. Continue Fosamax. Add Calcium w/D supplements, 600 mg bid. Assessment & Plan (03/11/2023 7:26 PM CDT): Weight-bearing exercises recommended. Bone density study ordered. Patient does not remember why she no longer takes any medications for osteoporosis. Will view DEXA scan prior to making recommendations. Hypercholesterolemia 09/09/2012 Assessment & Plan (09/21/2024 1:06 AM PLANT CARE WORKER): - chronic, stable - currently takes lovastatin [...] therapy Assessment & Plan (09/07/2023 12:47 PM PLANT CARE WORKER): LDL at goal of less than 100, continue current prescription medications, lovastatin. Assessment & Plan (03/11/2023 7:25 PM CDT): LDL at goal of less than 100, continue current prescription medications, lovastatin. Assessment & Plan (09/10/2022 11:14 AM PLANT CARE WORKER): LDL at goal of less than 100, continue current prescription medications. Assessment & Plan (01/24/2022 12:29 PM CDT): LDL at goal of less than 100. Continue current prescription medication. Assessment & Plan (12/25/2021 2:55 PM CDT): LDL at goal of < 100, cont current Rx meds. Assessment & Plan (09/08/2021 11:48 AM PLANT CARE WORKER): Stable, continues Lovastatin Will see PCP for [facility] in 12/2021 for labs. Assessment & Plan (01/05/2021 1:15 PM CDT): Stable. Cont. Current meds. Assessment & Plan (09/06/2020 9:12 AM PLANT CARE WORKER): Stable at last lipid panel Will be due for lipid panel, f/u with pcp in 4 months Assessment & Plan (07/30/2018 12:38 PM PLANT CARE WORKER): Lipid abnormalities are improving with treatment. Nutritional [...] 03/11/2023 Assessment & Plan (09/10/2022 11:13 AM PLANT CARE WORKER): Mild, H pylori test ordered. After test has been performed, patient may try [id number] omeprazole. Use as directed. If it does help out with her symptoms, patient instructed to contact us via [employer] and I will send in a prescription [...] (04/27/2020): Added automatically from request for surgery [id number] Tear of medial meniscus of right knee 04/27/2020 01/05/2021 Overview (04/27/2020): Added automatically from request for surgery [id number] Acute medial meniscus tear of left knee 03/28/2020 01/05/2021 Overview (03/28/2020): Added automatically from request for surgery [id number] Acute medial meniscus tear of right knee 03/28/2020 01/05/2021 Overview (03/28/2020): Added automatically from request for surgery [id number] Assessment & Plan (03/29/2020 2:56 PM CDT): [...] disease) Assessment & Plan (09/06/2020 9:12 AM PLANT CARE WORKER): Stable, continue current regimen Tear film insufficiency [...] -medical clearance granted -continue current treatment plan Immunizations Name Administration Dates Next Due COVID-19 mRNA ([employer]) 0.3 m L (30 mcg) vaccine (12 [...] Free 04/20/2022 Td, adsorbed 09/23/1999 Tdap 09/09/2012 Social History Tobacco Use Types Packs/Day Years [...] week 09/06/2020 How often do you attend [facility] or hinduism services? More than 4 times per year 09/06/2020 Do you belong to any clubs o r organizations such as anglican groups, unions, fraternal or athletic groups, or [...] staff should administer the PHQ-9) 0 09/02/2024 [facility] - Occupational Stress [...] on file Legal Sex Female 1:35 AM PLANT CARE WORKER Gender Identity Female 07/10/2021 9:16 AM CDT Sexual Orientation Choose not to disclose 2020 9:16 AM CDT Last Filed Vital Signs Vital Sign Reading Time Taken Comments Blood Pressure 130/86 09/07/2024 1:54 PM PLANT CARE WORKER Pulse 88 09/07/2024 1:54 PM PLANT CARE WORKER Temperature 36.2 ??C (97.1 ??F) 09/07/2024 1:54 PM CS T Respiratory Rate 16 09/07/2024 1:54 PM PLANT CARE WORKER Oxygen Saturation 98% 09/07/2024 1:54 PM PLANT CARE WORKER Inhaled Oxygen Concentration - - Weight 79.4 kg (175 lb) 09/07/2024 1:54 PM PLANT CARE WORKER Height 160 cm (5' 3 ) 09/07/2024 1:54 PM PLANT CARE WORKER Body Mass Index 31 09/07/2024 1:54 PM PLANT CARE WORKER Plan of Treatment Not on file Procedures Procedure Name Priority Date/Time Associated Diagnosis Comments CT ABDOMEN PELVIS W CONTRAST ED 09/07/2024 5:53 PM PLANT CARE WORKER EGFR STAT 09/07/2024 2:02 PM PLANT CARE WORKER DIFFERENTIAL AUTO STAT 09/07/2024 2:0 2 PM PLANT CARE WORKER LIPASE STAT 09/07/2024 2:02 PM PLANT CARE WORKER COMPREHENSIVE METABOLIC PANEL STAT 09/07/2024 2:02 PM PLANT CARE WORKER CBC WITH AUTO DIFFERENTIAL STAT 09/07/2024 2:02 PM PLANT CARE WORKER EGFR Routine 09/02/2024 2:50 PM PLANT CARE WORKER Parkinson's disease with dyskinesia and fluctuating manifestations (HCC) URINALYSIS, MICROSCOPIC ONLY Routine 09/02/2024 2:50 PM PLANT CARE WORKER Fever in adult Urinary urgency DIFFERENTIAL AUTO Routine 09/02/2024 2:5 0 PM PLANT CARE WORKER Parkinson's disease with dyskinesia and fluctuating manifestations (HCC) LIPID PANEL Routine 09/02/2024 2:50 PM PLANT CARE WORKER Parkinson's disease with dyskinesia and fluctuating manifestations (HCC) Hypercholesterolemia THYROID FUNCTION CASCADE Routine 09/02/2024 2:50 PM PLANT CARE WORKER Parkinson's disease with dyskinesia and fluctuating manifestations (HCC) VITAMIN B12 Routine 09/02/2024 2:50 PM PLANT CARE WORKER Parkinson's disease with dyskinesia and fluctuating manifestations (HCC) CBC WITH AUTO DIFFERENTIAL Routine 09/02/2024 2:50 PM PLANT CARE WORKER Parkinson's disease with dyskinesia and fluctuating manifestations (HCC) COMPREHENSIVE METABOLIC PANEL Routine 09/02/2024 2:50 PM PLANT CARE WORKER Parkinson's disease with dyskinesia and fluctuating manifestations (HCC) URINALYSIS AND REFLEX TO MICROSCOPIC AND CULTURE Routine 09/02/2024 2:50 PM PLANT CARE WORKER Fever in adult Urinary urgency SCREENING MAMMOGRAM [...] Abdomen Pelvis W Contrast (09/07/2024 5:53 PM PLANT CARE WORKER) Anatomical Region Laterality Modality Body N/A Computed Tomogra phy 09/07/2024 6:20 PM PLANT CARE WORKER Narrative 09/07/2024 6:24 PM PLANT CARE WORKER EXAM DESCRIPTION: ?? CT ABDOMEN PELVIS W [...] PM T: ??09/07/2024 6:24 PM Report ID: [id number] Reading Location: ??[id number] Procedure Note Mone Sanchez MD - 09/07/2024 [...] Mone Glass M.D. FT: FT Report ID: [id number] Reading Location: [id number] Princess CHUNG IMG CT PROCEDURES Final R esult * eGFR (09/07/2024 2:02 PM PLANT CARE WORKER) eGFR 75 >=60 mL/min/1. 73 m2 Comment: [...] last reviewed 2021. Blood 09/07/2024 2:02 PM PLANT CARE WORKER 09/07/2024 2:06 PM PLANT CARE WORKER us Smita Marsh MD LAB BLOOD ORDERABLES Laila varghese Result Performing Organization Address City/State/[facility] Co de Phone Number [facility] ([place]) 1 [facility] Department [place] [address] * Differential, auto (09/07/2024 2:02 PM PLANT CARE WORKER) Neutrophil abs 2.8 1.5 - 6.5 K/cumm Imm gran abs 0.0 0.0 - 0.1 K/cumm [facility] ([place]) Lymphocyte abs 1.8 0.8 - 3.3 K/cumm [facility] ([place]) Monocyte abs 0.6 0.2 - 0.8 K/cumm [facility] ([place]) Eosinophil abs 0.2 0.0 - 0.5 K/cumm [...] revised on 2017. Blood 09/07/2024 2:02 PM PLANT CARE WORKER 09/07/2024 2:06 PM PLANT CARE WORKER us Smita Marsh MD LAB BLOOD ORDERABLES Laila varghese Result [facility] ([place]) 1 [facility] Department [place] [address] * (ABNORMAL) CBC with auto differential (09/07/2024 2:02 PM PLANT CARE WORKER) WBC 5.5 3.8 - 9.9 K/cumm Hgb [...] (MICHAEL) Blood (Blood, Venous) 09/07/2024 2:02 PM PLANT CARE WORKER 09/07/2024 2:06 PM PLANT CARE WORKER Smita Marsh MD LAB BLOOD ORDERABLES Laila l Result [facility] ([place] 1 [facility] [place] [address] * Lipase (09/07/2024 2:02 PM PLANT CARE WORKER) Lipase 38 10 - 99 Units/L Blood (Blood, Venous) 09/07/2024 2:02 PM PLANT CARE WORKER 09/07/2024 2:06 PM PLANT CARE WORKER Smita Marsh MD LAB BLOOD ORDERABLES Laila l Result [facility] ([place]) 1 [facility] [place] [address] * (ABNORMAL) Comprehensive metabolic panel (09/07/2024 2:02 PM PLANT CARE WORKER) Sodium 140 135 - 145 mmol/L Potassium, pl 4.4 3.3 - 4.9 mmol/L [facility] ([place]) Chloride 106 97 - 110 mmol/L [facility] ([place]) CO2 24 22 - 32 mmol/L [facility] ([place] Anion gap 10 2 - 15 mmol/L [facility] ([place]) BUN 18 6 - 25 mg/dL [facility] ([place]) Creatinine 0.80 0.60 - 1.10 mg/dL [facility] ([place]) Glucose 85 70 - 199 mg/dL [facility] ([place]) Comment: Interpretive Data Fasting glucose [...] (MICHAEL) AST 18 10 - 45 Units/L [facility] ([place]) Blood 09/07/2024 2:02 PM PLANT CARE WORKER 09/07/2024 2:06 PM PLANT CARE WORKER Smita Marsh MD LAB BLOOD ORDERABLES Laila l Result [facility] ([place]) 1 [facility] Department [place] [address] * eGFR (09/02/2024 2:50 PM PLANT CARE WORKER) Pathologist [facility] eGFR 64 >=60 mL/min/1. 73 m2 Comment: [...] of Race in Diagnosing Kidney Disease, JASN 202). The CKD-EPI equation should not be used for patients with unstable renal function and has not been validated in children and those over 70. Current interpretive data was last reviewed 2021. Blood 09/02/2024 2:50 PM PLANT CARE WORKER 09/02/2024 3:38 PM PLANT CARE WORKER us Isidro Schultz MD LAB BLOOD ORDERABLES Fi nal Result [facility] ([place]) 1 [facility] Department [place] [address] * Differential, auto (09/02/2024 2:50 PM PLANT CARE WORKER) Pathologist [facility] Neutrophil abs 2.6 1.5 - 6.5 K/cumm Imm gran abs 0.0 0.0 - 0.1 K/cumm [facility] ([place]) Lymphocyte abs 1.4 0.8 - 3.3 K/cumm [facility] ([place]) Monocyte abs 0.5 0.2 - 0.8 K/cumm [...] Eosinophil pct 2.8 % [facility] ([place]) Comment: Interpretive Data Percent cell count reference ranges are not reported, since discordance with absolute values may lead to misinterpretation of CBC data. Current Interpretive Data was last revised on 2017. Basophil pct 0.6 % [facility] ([place]) Comment: Interpretive Data Percent cell count reference ranges are not reported, since discordance with absolute values may lead to misinterpretation of CBC data. Current Interpretive Data was last revised on 2017. Blood 09/02/2024 2:50 PM PLANT CARE WORKER 09/02/2024 3:39 PM PLANT CARE WORKER Isidro Schultz MD LAB BLOOD ORDERABLES Fi nal Result Performing Organization Address City/[facility]/ZIP Co de Phone Number [facility] ([place]) [address] [place] [address] * Thyroid Function [place] (09/02/2024 2:50 PM PLANT CARE WORKER) TSH 3.27 0.30 - 4.20 mcIUnit/mL Blood 09/02/2024 2:50 PM PLANT CARE WORKER 09/02/2024 3:38 PM PLANT CARE WORKER Isidro Schultz MD LAB BLOOD ORDERABLES Fi nal Result Performing Organization Address [facility] de Phone Number [facility] ([place]) 1 [facility] [place] [address] * (ABNORMAL) Urinalysis reflex to microscopic and culture Urine, clean voided (09/02/2024 2:50 PM PLANT CARE WORKER) Color, ur Yellow Yellow Clarity, ur Clear Clear [facility] ([place]) Specific gravity, ur 1.022 1.003 - 1.030 [facility] ([place]) pH, urine 5.5 [facility] ([place]) Comment: Interpretive Data ? Urine pH is affected by diet, medications, systemic acid-base disturbances, and renal tubular function. ??pH may affect urinary stone formation. ??For example, urine pH below 6.0 may help reduce the tendency for calcium phosphate stones and pH greater than 6.0 may reduce the tendency for uric acid stone formation. Source: [facility] BOSS Metrics Current Interpretive Data was last revised on [...] (MICHAEL) Urine, clean voided 09/02/2024 2:50 PM PLANT CARE WORKER 09/02/2024 3:39 PM PLANT CARE WORKER Isidro Schultz MD LAB MICROBIOLOGY - GENE RAL ORDERABLES Final Result [facility] ([place]) 1 [facility] Department [place] [address] * (ABNORMAL) CBC with auto differential (09/02/2024 2:50 PM PLANT CARE WORKER) WBC 4.6 3.8 - 9.9 K/cumm Hgb 14.9 11.9 - 15.5 g/dL [facility] ([place]) Hct 47.2(H) 35.6 - 45.5 % [facility] ([place]) Plt 147(L) 150 - 400 K/cumm [facility] ([place]) MPV 12.3 9.1 - 12.3 fL [facility] ([place]) RBC 5.05 3.90 - 5.20 M/cumm [facility] ([place]) MCV 93.5 81.3 - 96.4 fL [facility] ([place]) MCH 29.5 27.1 - 33.3 pg [facility] ([place]) MCHC 31.6(L) 32.3 - 35.7 g/dL [facility] ([place]) RDW CV 13.9 11.1 - 14.9 % [facility] ([place]) RDW SD 47.0 35.7 - 48.1 fL [facility] ([place]) NRBC abs 0.00 0.00 - 0.01 K/cumm [facility] ([place]) Blood 09/02/2024 2:50 PM PLANT CARE WORKER 09/02/2024 3:39 PM PLANT CARE WORKER Isidro Schultz MD LAB BLOOD ORDERABLES Fi nal Result [facility] ([place]) 1 [place] [address] * (ABNORMAL) Urinalysis, microscopic only (09/02/2024 2:50 PM PLANT CARE WORKER) [facility] WBC, ur 0-5 0 - 5 /HPF RBC, ur 0-2 0 - 2 /HPF [facility] ([place]) Epithelial cells, squamous, ur 1-5 0 - 5 /HPF [facility] ([place]) Mucous, ur Present(A) SB [facility] ([place]) Culture Reflex Comment Reflex conditions for urine culture (WBC >10) not met. [facility] ([place]) Urine, clean voided 09/02/2024 2:50 PM PLANT CARE WORKER 09/02/2024 3:44 PM PLANT CARE WORKER Isidro Schultz MD LAB URINE ORDERABLES Fi nal Result Performing Organization Address [facility] de Phone Number [facility] ([place]) 1 [place] [address] * Vitamin B12 (09/02/2024 2:50 PM PLANT CARE WORKER) [facility] Vitamin B12 1,096 230 - 1,250 pg/mL Blood 09/02/2024 2:50 PM PLANT CARE WORKER 09/02/2024 3:38 PM PLANT CARE WORKER Isidro Schultz MD LAB BLOOD ORDERABLES Fi nal Result Performing Organization Address [facility] de Phone Number [facility] ([place]) [address] [place] [address] * Lipid panel (09/02/2024 2:50 PM PLANT CARE WORKER) [facility] Cholesterol 170 30 - 199 mg/dL Comment: [...] 2018. Triglycerides 78 <=149 mg/dL [facility] ([place]) Comment: Interpretive Data [...] on 2024. Non-HDL Cholesterol 101 mg/dL [facility] ([place]) Comment: Interpretive Data [...] last revised on 2018. Chol/HDL ratio 2 [facility] ([place]) Blood 09/02/2024 2:50 PM PLANT CARE WORKER 09/02/2024 3:38 PM PLANT CARE WORKER Narrative [facility] ([place]) - 09/02/2024 4:20 PM PLANT CARE WORKER Has the patient been fasting for 8 hours or more?->No us Isidro Schultz MD LAB BLOOD ORDERABLES Fi nal Result [facility] ([place]) 1 [facility] Department [place] [address] * (ABNORMAL) Comprehensive metabolic panel (09/02/2024 2:50 PM PLANT CARE WORKER) Sodium 138 135 - 145 mmol/L Potassium, pl 4.8 3.3 - 4.9 mmol/L [facility] ([place]) Chloride 105 97 - 110 mmol/L [facility] ([place]) CO2 27 22 - 32 mmol/L [facility] ([place]) Anion gap 7 2 - 15 mmol/L [facility] ([place]) BUN 29(H) 6 - 25 mg/dL [facility] ([place]) Creatinine 0.92 0.60 - 1.10 mg/dL [facility] ([place]) Glucose 87 70 - 199 mg/dL [facility] ([place]) Comment: Interpretive Data Fasting glucose [...] [facility] ([place]) Blood 09/02/2024 2:50 PM PLANT CARE WORKER 09/02/2024 3:38 PM PLANT CARE WORKER us Isidro Schultz MD LAB BLOOD ORDERABLES Fi nal Result [facility] ([place]) 1 [facility] Department [place] [address] * Screening Mammogram Bilateral W Kevin (05/28/2024 [...] her next mammogram. Electronically signed by: ERIC Morfin 05/28/2024 2:51 PM CDT EXAMINATION: SCREENING MAMMOGRAM [...] history of: ??surveillance osteoporosis ?? Screening. ? Sand Caster/Model: [place] (S/N [id number]) CLINICAL INFORMATION: Current height: ??66 ??inches ? [...] AM T: ??04/20/2023 8:24 AM Report ID: [id number] Reading Location: ??[id number] Procedure Note Gab Baumann MD - 04/20/2023 EXAM DESCRIPTION: DEXA AXIAL SKELETON BONE DENSITY 1 OR MORE SITES REASON FOR STUDY: 77 y/o year old F with given history of:surveillance osteoporosis Screening. Sand Caster/Model: [employer] Discovery SL (S/N [id number]) CLINICAL INFORMATION: Current height: 66 inches Maximum [...] Gab Baumann M.D. MF: BLAKE Report ID: [id number] Reading Location: [place] [address] us Loree West DO IMG DXA PROCEDURES [...] AM T: ??04/21/2023 10:16 AM Report ID: [id number] Reading Location: ??[id number] Procedure Note Eric Quarles MD - 04/21/2023 [...] Eric Garnica M.D. RL: TITA Report ID: [id number] Reading Location: [place] [address] Loree West DO IMG CT PROCEDURES Final Re sult * COLONOSCOPY IMAGES (06/04/2016) Anatomical Region Laterality Modality Other Narrative 06/04/2016 Ordered by an unspecified provider. Historical Provider GI PROCEDURE ORDERABLES F inal Result * Serum Hepatitis C ab (03/05/2016 8:13 AM CDT) HCV ab Negative Negative HISTORICAL RESULTS Serum 03/05/2016 8:13 AM CDT us Iza Jay MD LAB BLOOD ORDERABLES Final Result HISTORICAL RESULTS from Last 3 Months or Most Recently Relevant to Health Maintenance Insurance MEDICARE [facility] MEDICARE [facility] MEDICARE BLUE CROSS MEDICARE SUPPLEMENT Advance Directives For more information, please contact: [phone] Documents on File Type Date Recorded Patient Cornetist Expl anation ADVANCE DIRECTIVE 09/06/2020 10:02 AM [facility] OF SENIOR CYBER SECURITY ANALYST-MEDICAL Care Teams Residential Mortgage Manager Relationship Specialty Start Date End Date Isidro Schultz MD [address] [place] [id number] PCP - General Family Medicine 03/03/24 Jarad Rodríguez MD [address] SIRISHA Mcneil [facility] [address] [place] [address] Surgeon Orthopedic Surgery 09/06/20 Noe Rodriguez MD [address] SIRISHA Mcneil [facility] [address] [place] [address] Consulting Physician Urology 09/06/20 Keith Dc DO [address] [place] [address] Consulting Physician Cardiovascular Disease 09/06/20 Fawad White MD [address] [place] [address] Consulting Physician Neurology 09/10/22
--- OUTSIDE RECORDS SUMMARY | 2024-10-15 13:12 | XMS_ITS | Encounter Summary ---
Author Organization [facility] Address [address] [place] [address] Phone Care Team Providers Care Sanitation Officer Name Role Phone Brett Loree Parth ROJAS Primary Care Provider [phone] Shaggy Mccarthy MD Unavailable [phone] Jarad Rodríguez MD Unavailable [phone] Noe Rodriguez MD Unavailable Keith Dc DO Unavailable Fawad White MD Unavailable Isidro Schultz MD Primary Care Provider Encounter Details Date Type Department Care Team (Late st Contact Info) Description 05/10/2022 Telephone [facility] Scheduling [address] [place] [address] Gris Antonio Social History Tobacco Use Types Packs/Day Years Used Date Smoking Tobacco: Former Cigarettes 0 09/23/1964 - 04/29/2008 Smokeless Tobacco: Never Comments:Smoking History Pac ks/day: 1 Packs Alcohol Use Standard Drinks/Week Comments [...] 09/06/2020 How often do you attend chur or orthodox services? More than 4 times per year 09/06/2020 Do you belong to any clubs o r organizations such as mormonism groups, unions, fraternal or athletic groups, or school groups? No 09/06/2020 How often do you attend meet ings of the clubs or organizations you belong to? Never 09/06/2020 Are you , , di vorced, , never , or living with a partner? 09/06/2020 Overall Financial Resource Strain (CARDIA) Answe r Date Recorded How hard is it for you to pa y for the very basics like food, housing, medical care, and heating? 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 documented as of this encounter Care Teams Sanitation Officer Relationship Specialty Start Date End Date Loree West DO PCP - General 01/28/18 03/02/24 Isidro Schultz MD [address] [facility] [address] SIRISHA Minor [facility] [address] [place] [address] PCP - General Family Medicine 03/03/24 Shaggy Mccarthy MD [facility] [address] [place] [address] Referring Physician Neurology 08/13/19 09/09/22 Jarad Rodríguez MD [address] [place] [address] DR SIRISHA Mcneil [facility] [address] [place] [address] Surgeon Orthopedic Surgery 09/06/20 Noe Rodriguez MD [address] [place] [address] DR SIRISHA Mcneil [facility] [address] [place] [address] Consulting Physician Urology 09/06/20 Keith Dc DO [address] [place] [address] DR LYNCH [address] [place] [address] Consulting Physician Cardiovascular Disease 09/06/20 Fawad White MD [address] [place] [address] DR LYNCH [address] [place] [address] Consulting Physician Neurology 09/10/22 documented as of this encounter
== END 2024-10-12 13:12 | disposition home or self-care (01) ==
PROVIDERS: Emergency Provider Nurse Practitioner; PCP Family Medicine
DX: N39.0 Urinary tract infection, site not specified (principal); B96.20 Unspecified Escherichia coli [E. coli] as the cause of diseases classified elsewhere; Z87.891 Personal history of nicotine dependence; M19.90 Unspecified osteoarthritis, unspecified site; E78.2 Mixed hyperlipidemia; G20.A1 Parkinson's disease without dyskinesia, without mention of fluctuations; Z79.82 Long term (current) use of aspirin
CPT/HCPCS: 81003; 87086; 87186; 99203; G0463

== ENCOUNTER 2025-09-04 09:05 | Emergency (ER) | payer MEDICARE, SELFPAY ==
[2025-09-04 09:10] VITALS: BP 107/68; PULSE 79; RESP 20; TEMP 36.6; O2SAT 100
--- OUTSIDE RECORDS SUMMARY | 2025-09-04 09:10 | XMS_ITS | Clinical Summary ---
Author Organization [facility] Address [address] [place] [address] Care Team Providers Care Metal Sorter Name Role Phone Jarad Rodríguez MD Unavailable Noe Rodriguez MD Unavailable [phone] Susan Dc DO Unavailable Fawad White MD Unavailable Leah Fenton MD Primary Care Provider Allergies Active Allergy [...] 07/10/2017 Tramadol Flushing (skin) Low 03/29/2020 Medications calcium carbonate-vitami n D3 (CALTRATE 600 + D) 1500 mg (600 mg elemental) -400 units per tablet Take 1 tablet by mouth daily Active ondansetron (ZOFRAN) 4 mg tablet Take 1 tablet (4 mg total) by mouth 4 (four) times a day as needed for nausea or vomiting 120 tablet 11 4 Active carbidopa-levodo pa (SINEMET) 25-100 mg per tablet TAKE 1.5 TABLETS BY MOUTH AT 6AM,12PM, AND 2 TABLETS AT 8PM 450 tablet 3 5 Active lovastatin (MEVACOR) 40 mg tabletIndication s:Hypercholester olemia TAKE 1 TABLET BY MOUTH EVERY DAY 90 tablet 1 5 Active aspirin 81 mg enteric coated tablet TAKE 1 TABLET BY MOUTH EVERY DAY 90 tablet 3 5 Active omeprazole (PriLOSEC) 40 mg capsuleIndicatio ns:Gastroesophag eal reflux disease without esophagitis Take 1 capsule (40 mg total) by mouth daily 30 capsule 11 5 07/27/20 26 Active Active Problems Problem Noted Date Diagnosed Date Skin lesion of back 04/21/2025 Assessment & Plan (04/21/2025 8:09 PM CDT): - lesion removed without issues, see procedure note for further details Urinary frequency 04/07/2025 Assessment & Plan (04/07/2025 11:50 AM CDT): - patient with history of recurrent UTIs and bladder prolapse recently seen at outside facility for complaints of dysuria and frequency however urinalysis at that time negative - continues to have of dysuria frequency and malodorous urine, patient already follows with Urology and has trailed many medications however had to stop most of them due to cost - patient could potentially have interstitial cystitis, will reach out to urologist for further information and their opinion on starting topical estrogen Recurrent cystitis 05/27/2024 Assessment & Plan (09/02/2024 3:10 PM CURRICULUM COACH): -chronic, not at goal - recurring issue [...] 1 month -patient has been seen at [facility] and by PCP for this issue [...] 09/10/2022 Assessment & Plan (09/10/2022 11:14 AM CURRICULUM COACH): Encouraged patient to make sure she keeps her bowels moving on a daily basis to help minimize his symptoms of acid reflux or heartburn. She reports MOM helps. May continue. Consider MiraLax daily. Increase water intake. Gastroesophageal reflux disease without esophagi tis 09/10/2022 Assessment & Plan (09/02/2024 3:11 PM CURRICULUM COACH): - chronic, not at goal - patient [...] therapy Assessment & Plan (09/07/2023 12:47 PM CURRICULUM COACH): Asymptomatic. Stable. Continue current prescription medications, omeprazole. Assessment & Plan (09/10/2022 11:13 AM CURRICULUM COACH): Labs ordered, will follow. Acne rosacea 01/24/2022 [...] 07/18/2020 Assessment & Plan (09/08/2021 11:49 AM CURRICULUM COACH): Follows with Neuro. Aortic atherosclerosis 01/14/2020 Assessment & Plan (09/10/2022 11:14 AM CURRICULUM COACH): Asymptomatic. Stable. Continue current prescription medications. Assessment & Plan (09/08/2021 11:49 AM CURRICULUM COACH): Asymptomatic, continuing aspirin and statin. Assessment & Plan (01/05/2021 1:15 PM CDT): Asymptomatic. Continue daily aspirin and statin. Seborrheic keratosis 04/30/2019 Assessment & Plan (04/21/2025 8:09 PM CDT): - Most likely benign in nature however sent for pathology due to size - will follow up on results as necessary Assessment & Plan (04/12/2025 9:48 AM CDT): Appears as SK. See images. Sent for pathology. 3 interrupted sutures placed with recommendation to return in 7-10 days for removal. Assessment & Plan (04/07/2025 11:52 AM CDT): Multiple SKs noted on back however 1 and bra strap region quite large and patient desiring removal due to irritation Assessment & Plan (04/30/2019 11:31 AM CDT): [...] 04/08/2019 Assessment & Plan (09/02/2024 2:26 PM CURRICULUM COACH): Wt Readings from Last 3 Encounters: 09/02/24 79.5 kg (175 lb 4.8 oz) 08/12/24 80.1 kg (176 lb 9.6 oz) 05/27/24 78.2 kg (172 lb 8 oz) Body mass index is 30.56 kg/m . -Stable, at goal of <30 bmi -Discussed [...] (175 lb) Body mass index is 28.4 kg/m . -Stable, at goal of <30 bmi -Discussed [...] 4.8 oz) Body mass index is 28.81 kg/m . -Stable, at goal of <30 bmi -Discussed recommendations for exercise at least 30 minutes moderate to vigorous exercise as tolerated most days of the week. (minimum 150 minutes weekly) -Discussed importance of well-balanced diet. 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 She has some levodopa induced sleepiness but [...] email. 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 Recommendations 1. Increase CD/LD to 1.5/1.5/2, 2. [...] visit). Assessment & Plan (09/10/2022 11:14 AM CURRICULUM COACH): Stable. Cont. Current prescription medications. Managed by [...] info on the youtube channel exercises from [employer]. She has some levodopa induced sleepiness but [...] sleepiness. Assessment & Plan (09/08/2021 11:49 AM CURRICULUM COACH): Stable, patient follows with Neuro Assessment & [...] drug for the rest of her life. Recommendations 1. Same levodopa. We will check [...] Neurology. Assessment & Plan (09/06/2020 9:12 AM CURRICULUM COACH): Stable, followed by neurology Continue current regimen [...] will try a small dose of trazodone. Recommendations 1. Same levodopa. 2. Same domperidone but she may try the first dose 30 min before levodopa. 3. Start trazodone PRN as directed. 4. Start APDA youtube exercises, refused PT today. 5. Will send APDA new patient packet with stretching book. 6. Continue to increase salt and fluids. Age-related osteoporosis wit hout current pathological fracture 09/09/2012 Assessment & Plan (09/07/2024 1:35 AM CURRICULUM COACH): - chronic, stable - currently takes Fosamax [...] therapy Assessment & Plan (09/07/2023 12:47 PM CURRICULUM COACH): Weight-bearing exercises recommended. Continue Fosamax. Add Calcium w/D supplements, 600 mg bid. Assessment & Plan (03/11/2023 7:26 PM CDT): Weight-bearing exercises recommended. Bone density study ordered. Patient does not remember why she no longer takes any medications for osteoporosis. Will view DEXA scan prior to making recommendations. Hypercholesterolemia 09/09/2012 Assessment & Plan (09/21/2024 1:06 AM CURRICULUM COACH): - chronic, stable - currently takes lovastatin [...] therapy Assessment & Plan (09/07/2023 12:47 PM CURRICULUM COACH): LDL at goal of less than 100, continue current prescription medications, lovastatin. Assessment & Plan (03/11/2023 7:25 PM CDT): LDL at goal of less than 100, continue current prescription medications, lovastatin. Assessment & Plan (09/10/2022 11:14 AM CURRICULUM COACH): LDL at goal of less than 100, continue current prescription medications. Assessment & Plan (01/24/2022 12:29 PM CDT): LDL at goal of less than 100. Continue current prescription medication. Assessment & Plan (12/25/2021 2:55 PM CDT): LDL at goal of < 100, cont current Rx meds. Assessment & Plan (09/08/2021 11:48 AM CURRICULUM COACH): Stable, continues Lovastatin Will see PCP for [facility] in 12/2021 for labs. Assessment & Plan (01/05/2021 1:15 PM CDT): Stable. Cont. Current meds. Assessment & Plan (09/06/2020 9:12 AM CURRICULUM COACH): Stable at last lipid panel Will be due for lipid panel, f/u with pcp in 4 months Assessment & Plan (07/30/2018 12:38 PM CURRICULUM COACH): Lipid abnormalities are improving with treatment. Nutritional [...] 03/11/2023 Assessment & Plan (09/10/2022 11:13 AM CURRICULUM COACH): Mild, H pylori test ordered. After test has been performed, patient may try [id number] omeprazole. Use as directed. If it does help out with her symptoms, patient instructed to contact us via [employer] and I will send in a prescription [...] (04/27/2020): Added automatically from request for surgery [id number] Tear of medial meniscus of right knee 04/27/2020 01/05/2021 Overview (04/27/2020): Added automatically from request for surgery [id number] Acute medial meniscus tear of left knee 03/28/2020 01/05/2021 Overview (03/28/2020): Added automatically from request for surgery [id number] Acute medial meniscus tear of right knee 03/28/2020 01/05/2021 Overview (03/28/2020): Added automatically from request for surgery [id number] Assessment & Plan (03/29/2020 2:56 PM CDT): [...] disease) Assessment & Plan (09/06/2020 9:12 AM CURRICULUM COACH): Stable, continue current regimen Tear film insufficiency [...] Encounters Date Type Department Care Team Description 08/31/2025 Telephone [facility] at [address] [place] [address] Leah Fenton MD 07/26/2025 Documentation [facility] Medicine Movement Disorders [address] [place] [phone] Jazmine Mathews CMA 07/07/2025 Documentation [facility] Medicine Movement Disorders [address] [place] [id number] Ariella Locke CMA from Last 3 Months Immunizations Immunization Administration Dates Next Due COVID-19 mRNA (PFIZER) 0.3 m L (30 mcg) vaccine (12 [...] 09/22/2013 er back pain OTHER SURGICAL HISTORY Parkensons: Dr. Shaggy Mccarthy-Movement disorder/neurology OTHER SURGICAL HISTORY Dr. Noe Rodriguez/urogynecologist . OTHER SURGICAL HISTORY 09/23/1990 - 09/22/1991 breast bx rt OTHER SURGICAL HISTORY microscopic hematuria: Dr. Rodriguez OTHER SURGICAL HISTORY 01-gi: Dr. Shelton OTHER SURGICAL HISTORY Dr. Castillo/ortho OTHER SURGICAL HISTORY Dr. Graves/opthalmology HYSTERECTOMY OOPHORECTOMY BREAST BIOPSY BREAST CYST ASPIRATION KNEE ARTHROSCOPY W/ LATERAL RELEASE bilateral menisectomy ,Apr 2021 CATARACT EXTRACTION Medical History Medical History Date Comments Hx Other Medical -uro Hx Other Medical -ortho Hx Other Medical fx of rt ankle Hx Other Medical fx of rt collar bone Hx Other Medical fibrocystic jyoti asts Malignant neoplasm of cervix (HCC) Cancer, cervical Hx Other Medical diverticulitis w/perforation Chronic obstructive pulmonar y disease COPD Hx Other Medical cervical CA Hx Other Medical renal cysts Arthritis Arthritis Hx Other Medical Parkensons Hx Other Medical 2015 bladder prolaps ; Comments: UPHOLSTERY BUNDLER 03/14/2015 -midline cystocele Hx Other Medical microscopic hem aturia; Comments: urology follows. Hx Other Medical -gi Fibrocystic breast Breast cyst GERD (gastroesophageal reflu x disease) increased last couple months Cataract Migraines Chronic kidney disease multiple cysts on both Neuromuscular disorder Parkinson Stroke (HCC) cat scan Family History Medical History Relation Name Comments Alcohol abuse Brother 1 susan COPD Brother 1 susan Cancer Brother 1 susan Hypertension Brother 1 susan Other Brother 1 susan lung cancer; Stroke Brother 1 susan Vision loss Brother 1 susan Hypertension Brother 2 Hypertension; Depression Brother 3 [...] 13 Osteoporosis; Heart attack Brother 14 [place]; Other Brother 15 harjeet ptsd; Suicide Completion Brother 16 Alcohol abuse Brother 17 Nicholas Kidney disease Father's Sister Renal dise ase; [...] 14 ross Brother 15 harjeet Brother 16 Brother 17 Nicholas Alive Father's Sister Mother Rosanne Mother's Sister 1 [...] or ex-partner? No 09/06/2020 Social Connection and Isolation Panel Answer Date Recorded In a typical week, how many times do you talk on the phone with family, friends, or neighbors? More than three times a week 09/06/2020 How often do you get togethe r with friends or relatives? Once a week 09/06/2020 How often do you attend chur or zoroastrian services? More than 4 times per year 09/06/2020 Do you belong to any clubs o r organizations such as mosque groups, unions, fraternal or athletic groups, or school groups? No 09/06/2020 How often do you attend meet ings of the clubs or organizations you belong to? Never 09/06/2020 Are you , , di vorced, , never , or living with a partner? 09/06/2020 AUDIT-C Answer Date Recorded Q1: How often do you have a drink containing alcohol? Never 04/20/2025 Q2: How many drinks containi ng alcohol do you have on a typical day when you are drinking? Patient does not drink Q3: How often do you have si x or more drinks on one occasion? Never 04/20/2025 Overall Financial Resource Strain (CARDIA) Answe r Date Recorded How hard is it for you to pa y for the very basics like food, housing, medical care, and heating? Somewhat hard 09/06/2020 PHQ-2 Answer Date Recorded PHQ-2 Total Score (If total score is 3 or more points, staff should administer the PHQ-9) 0 09/02/2025 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 Gender Identity Female 07/10/2021 9:16 AM CDT Sexual Orientation Choose not to disclose 2020 9:16 AM CDT Obstetrics History Para Term AB IAB SAB Ectopic Multiple Livin g Live Births 2 1 1 Date Outcome GA Total Labor Labor/2nd/3rd Weight Sex Type Anes PTL Litzy A1 A5 Name Clin Term Last Filed Vital Signs Vital Sign Reading Time Taken Comments Blood Pressure 128/64 04/20/2025 8:11 AM CDT Pulse 68 04/20/2025 8:11 AM CDT Temperature 36.2 C (97.1 F) 09/07/2024 1:54 PM CURRICULUM COACH Respiratory Rate 18 04/20/2025 8:11 AM CDT Oxygen Saturation 95% 04/20/2025 8:11 AM CDT Inhaled Oxygen Concentration - - Weight 79.8 kg (175 lb 14.4 oz) 04/20/2025 8:11 AM CDT Height 167.6 cm (5' 5.98) 04/20/2025 8:11 AM CD T Body Mass Index 28.4 04/20/2025 8:11 AM CDT Plan of Treatment Health Maintenance Due Date Last Done Comments Zoster Vaccine (1 of 2) 1996 Lung Cancer Screening 04/19/2024 04/19/2023, 021 Covid-19 Vaccine (2024-10 6 season) 2025 07/20/2024, 07/02/2023, 06/12/2022, Additional history exists Well Visit 65+ 09/02/2025 09/02/2024, 1204/2023, 09/10/2022, Additional history exists Depression Screening 04/20/2026 04/20/2025, 04/12/2025, 04/06/2025, Additional history exists Fall Risk Assessment 04/20/2026 04/20/2025, 04/06/2025, 09/02/2024, Additional history exists DTaP/Tdap/Td Vaccine (3 - [...] Discontinued 05/28/2024, 04/19/2023, 01/02/2022, Additional history exists Influenza Vaccine Completed 06/11/2025, , 07/02/2023, Additional history exists Procedures Procedure Name Priority Date/Time Associated Diagnosis Comments SCREENING MAMMOGRAM BILATERAL W KEVIN Schedule Routine, [...] Recently Relevant to Health Maintenance Results * Screening Mammogram Bilateral W Kevin (05/28/2024 [...] SCREENING MAMMOGRAM HISTORY: Routine screening mammography. COMPARISON: 04/19/2023, 01/02/2022, 09/14/2020. TECHNIQUE: CC and MLO views [...] y/o year old F with given history of: surveillance osteoporosis Screening. Infantryman/Model: Testif SL (S/N [id number]) CLINICAL INFORMATION: Current height: 66 inches Maximum [...] mass (T-score between -1.0 and -2.5) replaces the previously used term osteopenia Osteoporosis (T-score = or below -2.5) Medical evaluation for secondary causes of low bone mineral density may be appropriate. FRAX is a World Health Organization validated fracture risk assessment tool that calculates a person's 10 year probability of a major osteoporosis related fracture and hip fracture. According to the National Osteoporosis Foundation guidelines, postmenopausal [...] Gab Baumann M.D. MF: BLAKE Report ID: [id number] Reading Location: [place] [address] Procedure Note Gab Baumann MD - 04/20/2023 EXAM DESCRIPTION: DEXA AXIAL SKELETON BONE DENSITY 1 OR MORE SITES REASON FOR STUDY: 77 y/o year old F with given history of:surveillance osteoporosis Screening. Infantryman/Model: Whisher (S/N [id number]) CLINICAL INFORMATION: Current height: 66 inches Maximum [...] Gab Baumann M.D. MF: BLAKE Report ID: [id number] Reading Location: [place] [address] us Loree West DO IMG DXA PROCEDURES Final R esult * CT Lung Cancer Screening (04/19/2023 8:20 AM CDT) Anatomical Region Laterality Modality Chest N/A Computed Tomogra phy 04/21/2023 10:1 0 AM CDT Narrative 04/21/2023 10:16 AM CDT EXAM DESCRIPTION: CT LUNG CANCER SCREENING REASON FOR STUDY: Screening CT of the chest in a former smoker with a 43 pack year smoking history. Additional history: Smoking cessation 14 years ago at age 63. Chronic obstructive pulmonary disease. [...] axial image 67. No new suspicious lung nodules are seen. CORONARY ARTERY CALCIFICATION: Moderate. OTHER: Unchanged mild areas of peripheral scarring. Minimal bibasilar atelectasis. There is no focal consolidation. The airways are patent and normal in caliber. There is no bronchial wall thickening. No pleural effusion or pneumothorax. No suspicious lymphadenopathy is seen in the chest. Calcified right hilar lymph nodes are sequelae of old, healed granulomatous disease. The heart size is normal. No pericardial thickening or effusion. The thoracic aorta is atherosclerotic, but normal in caliber. The central pulmonary arteries have normal caliber. Limited low-dose images through the upper abdomen are unremarkable. Examination of bone windows demonstrates no suspicious lytic [...] Eric Garnica M.D. RL: TITA Report ID: [id number] Reading Location: [place] [address] Procedure Note Eric Quarles MD - 04/21/2023 [...] Eric Garnica M.D. RL: TITA Report ID: [id number] Reading Location: [id number] Loree West DO IMG CT PROCEDURES Final [...] Recently Relevant to Health Maintenance Insurance MEDICARE [facility] MEDICARE [facility] MEDICARE SUPPLEMENT MEDICARE Advance Directives For more information, please contact: [phone] Documents on File Type Date Recorded Patient Shipping Support Clerk Expl anation ADVANCE DIRECTIVE 09/06/2020 10:02 AM [facility] Care Teams Metal Sorter Relationship Specialty Start Date End Date Leah Fenton MD [address] [facility] [address] [place] [address] PCP - General Family Medicine 04/06/25 Jarad Rodríguez MD [address] [facility] [address] SIRISHA Mcneil [address] [place] [address] Surgeon Orthopedic Surgery 09/06/20 Noe Rodriguez MD [address] [facility] [address] SIRISHA Mcneil [address] [place] [address] Consulting Physician Urology 09/06/20 Susan Dc DO [address] [facility] [address] [place] [address] Consulting Physician Cardiovascular Disease 09/06/20 Fawad White MD [address] [place] [address] [place] [address] Consulting Physician Neurology 09/10/22
--- OUTSIDE RECORDS SUMMARY | 2025-09-04 09:11 | XMS_ITS | Clinical Summary ---
Author Organization [employer] [facility] lin Address [address] [place] [address] Care Team Providers Care Greige Goods Inspector Name Role Phone Unavailable Primary Care Provider Unavailabl e Immunizations Immunization Administration Dates Next Due Fluzone Trivalent High Dose (65+ years) 06/11/20 25 Social History Tobacco Use Types Packs/Day Years Used Date Smoking Tobacco: Never Assessed Comments Unknown Sex and Gender Information Value Date Recorded Sex Assigned at Not on file Legal Sex Female 9:42 AM EST Gender Identity Not on file Sexual Orientation Not on file Plan of Treatment Not on file Medical Devices Not on file
--- OUTSIDE RECORDS SUMMARY | 2025-09-04 09:11 | XMS_ITS | Encounter Summary ---
Author Organization [facility] Healthcare Address [address] [place] [address] Care Team Providers Care Sap Bobj Developer Name Role Phone Jarad Rodríguez MD Unavailable [phone] Noe Rodriguez MD Unavailable [phone] Keith Dc DO Unavailable [phone] Fawad White MD Unavailable Leah Fenton MD Primary Care Provider [phone] Encounter Details Date Type Department Care Team (Late st Contact Info) Description 08/31/2025 Telephone [facility] at [address] [place] [address] Leah Fenton MD [address] [place] [address] [address] [place] [address] Social History Tobacco Use Types Packs/Day Years [...] How often do you attend chur or taoist services? More than 4 times per year 09/06/2020 Do you belong to any clubs o r organizations such as scientologist groups, unions, fraternal or athletic groups, or [...] should administer the PHQ-9) 0 09/02/2025 [facility] - Occupational Stress Questionnaire Answer Date Recorded [...] on file Legal Sex Female 1:35 AM [employer] WE[employer] DEVELOPER Gender Identity Female 07/10/2021 9:16 AM CDT Sexual Orientation Choose not to disclose 2020 9:16 AM CDT documented as of this encounter Functional Status * One or more falls in the last year Answer Date of Assessment Author 2 09/02/2025 6:52 PM [employer] DEVELOPER Manuel Womack Provider * How many times? Answer Date of Assessment Author 1 09/02/2025 6:52 PM [employer] WE[employer] DEVELOPER Vu Generic Provider * Was the patient injured in the fall? Answer Date of Assessment Author No 09/02/2025 6:52 PM [employer] DEVELOPER Manuel Womack Provider * AUDIT-C Score Answer Date of Assessment Author 0 09/02/2025 6:52 PM [employer] DEVELOPER Vu Generic Provider * Q1: How often do you have a drink containing alcohol? Answer Date of Assessment Author Never 09/02/2025 6:52 PM [employer] DEVELOPER Manuel Womack Provider * Q2: How many drinks containing alcohol do you have on a typical day when you are drinking? Answer Date of Assessment Author Patient does not drink 09/02/2025 6:52 PM [employer] DEVELOPER Salome nieves, Generic Provider * Q3: How often do you have six or more drinks on one occasion? Answer Date of Assessment Author Never 09/02/2025 6:52 PM [employer] DEVELOPER Manuel Womack Provider documented as of this encounter Miscellaneous Notes * Telephone Encounter - Carla Cazares - 08/31/2025 12:28 PM CST Error NTO WEB DEVELOPER documented in this encounter Plan of Treatment Not on file documented as of this encounter Visit Diagnoses Not on filedocumented in this encounter Care Teams Sap Bobj Developer Relationship Specialty Start Date End Date Leah Fenton MD [address] [place] [address] PCP - General Family Medicine 04/06/25 Jarad Rodríguez MD [address] [place] [address] [address] SIRISHA Mcneil [facility] [address] [place] [address] Surgeon Orthopedic Surgery 09/06/20 Noe Rodriguez MD [address] [place] [address] DR SIRISHA Mcneil [facility] [address] [place] [address] Consulting Physician Urology 09/06/20 Keith Dc DO [address] [place] [address] [address] [place] [address] Consulting Physician Cardiovascular Disease 09/06/20 Fawad White MD [address] [place] [address] [address] [place] [address] Consulting Physician Neurology 09/10/22 documented as of this encounter
--- NOTE | 2025-09-04 09:35 | ED.NAVMDI ---
HPI - Nausea/Vomiting/Diarrhea General Chief complaint: Nausea/Vomiting/Diarrhea Stated complaint: nausea/diarrhea Time Seen by Provider: 09/04/25 09:18 Source: patient and RN notes reviewed Mode of arrival: ambulatory Limitations: no limitations History of Present Illness HPI Narrative: 80 year old female patient with history of Parkinsons, diverticulitis, IBS, presents today complaining of a 1 week history of diarrhea, generalized, constant abdominal cramping, and persistent nausea. Reports some bright red blood in the stool initially, but this has since resolved. She describes the diarrhea now as wrapped in mucus twice daily. She has been taking Zofran for her nausea, which provided some mild relief. She has also been taking Pepto-Bismol. She has been able to eat some dry toast and Jell-O, but states she has been unable to take her medications especially her Parkinson's medications. Related Data Home Medications ?Medication ?Instructions ?Recorded ?Confirmed ?Last Taken ?Type aspirin 81 mg tablet,delayed 81 mg PO DAILY 04/19/24 04/19/24 Unknown History release carbidopa 25 mg-levodopa 100 mg See Rx Instructions .Route .COMPLEX 04/19/24 04/19/24 Unknown History tablet lovastatin 40 mg tablet 40 mg PO DAILY 04/19/24 04/19/24 Unknown History ondansetron HCl 4 mg tablet mg 09/04/25 Unknown History Allergies Allergy/AdvReac Type Severity Reaction Status Date / Time buspirone Allergy Intermediate VOMITING Verified 09/04/25 09:19 codeine Allergy Intermediate VOMITING Verified 09/04/25 09:19 metoclopramide Allergy Intermediate VOMITING Verified 09/04/25 09:19 morphine Allergy Intermediate VOMITING Verified 09/04/25 09:19 pentazocine Allergy Intermediate VOMITING Verified 09/04/25 09:19 Sulfa (Sulfonamide Allergy Unknown Verified 09/04/25 09:19 Antibiotics) [facility] Past Medical History Medical History Arthritis Pneumonia Bronchitis Hyperlipemia, mixed Parkinsonism Surgical History Surgical History Hx of arthroscopic knee surgery bilateral knees H/O: hysterectomy History of tonsillectomy Social History Social History Smoking packs per day: 1 Smoking cigarettes per day: 20.0 Years smoked: 40 Smoking pack-years: 40.00 Smoking status: Former smoker Tobacco type: cigarettes Alcohol intake: current Alcohol use details: rare social Substance use type: does not use Living arrangements: with family Occupation/Education: retired Gender identity (if verbalized by the patient): Female Comments At time of signature, I have reviewed and agree with nursing past medical, surgical, social and family history unless otherwise noted. Please see nursing chart for further information. There is no relevant family history pertinent to the presenting complaint Exam Narrative: GENERAL: Well-appearing, well-nourished, and in no acute distress. HEAD: Normocephalic, atraumatic. EYES: EOMI. No redness or drainage. Conjunctivae normal. ENT: Mucous membranes pink and moist. Nares clear. No rhinorrhea. TMs normal bilaterally. Throat normal. Uvula midline. NECK: Normal AROM. Supple. No lymphadenopathy. CHEST: No respiratory distress. Clear to auscultation. HEART: Regular rate and rhythm. No murmur appreciated. Normal peripheral pulses. ABDOMEN: Soft, nondistended, normal active bowel sounds.+ generalized abdominal tenderness with rebound on the left EXTREMITIES: Normal range of motion. No edema. SKIN: Warm, dry, no rash. Capillary refill normal. Normal skin turgor. NEURO: Alert and oriented x3. Gait steady.+ tremors PSYCH: Normal affect. No signs of depression or anxiety. Course Course Level of Care: Express Care Visit Vital Signs Vital signs: Vital Signs Temperature 97.8 F 09/04/25 09:10 Pulse Rate 79 09/04/25 09:10 Respiratory Rate 20 09/04/25 09:10 Blood Pressure 107/68 09/04/25 09:10 Pulse Oximetry 100 09/04/25 09:10 Oxygen Delivery Room Air 09/04/25 09:10 Temperature 97.8 F 09/04/25 09:10 Pulse Rate 79 09/04/25 09:10 Respiratory Rate 20 09/04/25 09:10 Blood Pressure 107/68 09/04/25 09:10 Pulse Oximetry 100 09/04/25 09:10 Oxygen Delivery Room Air 09/04/25 09:10 Reviewed Transfer Transfered to: [facility] Transportation: Other (Private vehicle) Transfer rationale: Nausea, diarrhea, abdominal discomfort Accepting physician: Leonardo. Report given to NICOLE Zapien MDM MDM Narrative Medical decision making narrative: 80 year old female patient with history of Parkinsons, diverticulitis, IBS, presents today complaining of a 1 week history of diarrhea, generalized, constant abdominal cramping, and persistent nausea. Reports some bright red blood in the stool initially, but this has since resolved. She describes the diarrhea now as wrapped in mucus twice daily. She has been taking Zofran for her nausea, which provided some mild relief. She has also been taking Pepto-Bismol. She has been able to eat some dry toast and Jell-O, but states she has been unable to take her medications especially her Parkinson's medications. Upon exam, patient has generalized abdominal tenderness with rebound on the left. She will be transferred to the ER at [facility] for further evaluation of her symptoms. Patient agrees with plan. Vital signs stable at this time. Differential Diagnosis Differential Diagnosis: Gastroenteritis colitis, diverticulitis, perforation, abscess, dehydration Critical Care Time Critical Care Time Critical Care Time: No Discharge Plan Discharge Clinical Impression: Nausea vomiting and diarrhea, Abdominal cramping Patient Disposition: Acute Care Hospital Condition: Stable Patient Language: Scottish Prescriptions: No Action lovastatin 40 mg tablet 40 mg PO DAILY aspirin 81 mg tablet,delayed release (DR/EC) 81 mg PO DAILY carbidopa-levodopa 25-100 mg tablet See Rx Instructions .ROUTE .COMPLEX Rx Instructions: as prescribed ondansetron HCl 4 mg tablet Follow-up/Referrals: PHYSICIAN NOT ON STAFF,NONSTAFF [Primary Care Provider] Time of Disposition: 09:39
== END 2025-09-04 09:45 | disposition short-term general hospital (02) ==
PROVIDERS: Emergency Provider Nurse Practitioner
DX: R11.2 Nausea with vomiting, unspecified (principal); R19.7 Diarrhea, unspecified; R10.84 Generalized abdominal pain; G20.A1 Parkinson's disease without dyskinesia, without mention of fluctuations; E78.2 Mixed hyperlipidemia; M19.90 Unspecified osteoarthritis, unspecified site; Z87.891 Personal history of nicotine dependence; Z79.82 Long term (current) use of aspirin
CPT/HCPCS: 99212; G0463